=== PATIENT | female | born 1945 | race African-American/Black ===

== ENCOUNTER 2016-08-09 15:00 | Inpatient (IN) ==
--- NOTE | 2016-08-09 15:15 | Emergency Department Note ---
Disposition Clinical Impression: Fever Qualifiers: Fever type: unspecified Qualified Code(s): R50.9 - Fever, unspecified UTI (urinary tract infection) Qualifiers: Urinary tract infection type: site unspecified Hematuria presence: without hematuria Qualified Code(s): N39.0 - Urinary tract infection, site not specified Disposition: Admitted As Inpatient Condition: Good Referrals: Elyssa Schroeder DO [Primary Care Provider] - Forms: ED Satisfaction Letter Time of Disposition: 17:33 General Adult HPI - General Chief complaint: ED Fever Stated complaint: N/D fever Time Seen by Provider: 08/09/16 15:08 Source: patient Mode of arrival: ambulatory Limitations: no limitations Nursing Notes Reviewed: Yes Vital Signs Reviewed: Yes - History of Present Illness HPI Narrative: 71-year-old female past medical history of diabetes and renal disease presents with 2 days of gradually worsening subjective fever and chills punctuated by a fever of 103.0 at home this afternoon. This is associated with malaise and 2 episodes of loose light-colored stool. She has a mild nonproductive cough today. She denies any nausea or vomiting, but admits to poor appetite. She denies any changes in urination or history of urinary tract infection. She denies any confusion, headache, neck stiffness, chest pain or shortness of breath, abdominal pain, rashes or edema. She denies any recent antibiotic use or recent injury or hospitalization. She denies body aches or arthralgias. Pain Scale: 0 - Related Data Home Medications Medication Instructions Recorded Confirmed Allopurinol [Zyloprim] 100 mg PO BID 01/07/16 01/28/16 Atorvastatin [Lipitor] 80 mg PO HS 01/07/16 01/28/16 Carvedilol 12.5 mg PO BID 01/07/16 01/28/16 Clopidogrel [Plavix] 75 mg PO DAILY 01/07/16 01/28/16 Cyanocobalamin (Vitamin B-12) 1,000 mcg PO QMWF 01/07/16 01/28/16 [Vitamin B12] Exenatide Microspheres [Bydureon] 2 mg SQ QWEEK 01/07/16 01/28/16 Ferrous Sulfate [Iron] 325 mg PO BID 01/07/16 01/28/16 Glimepiride [Amaryl] 1 mg PO DAILY 01/07/16 01/28/16 Levothyroxine [Synthroid] 75 mcg PO 0630 01/07/16 01/28/16 Lisinopril [Zestril] 10 mg PO DAILY 01/07/16 01/28/16 Loratadine [Allergy Relief] 10 mg PO DAILY 01/07/16 01/28/16 Pantoprazole Sodium [Protonix] 40 mg PO DAILY 01/07/16 01/28/16 Venlafaxine [Effexor] 37.5 mg PO DAILY 01/07/16 01/28/16 Allergies Allergy/AdvReac Type Severity Reaction Status Date / Time Oxycodone [From Percocet] Allergy Vomiting Verified 08/09/16 15:02 All systems ED: reviewed and negative except as stated. Past Medical History - Past Medical History Attestation: Yes The following information was validated with the patient. Source: patient Medical history: Reports: CHF, diabetes, hyperlipidemia, hypertension, thyroid disease, TIA Surgical history: Reports: breast surgery, cholecystectomy, hysterectomy, orthopedic, other Psychiatric history: Reports: no psych history - Social History Smoking Status: Never smoker Alcohol use: Reports: none Drug use: Reports: none Physical Exam - Head Head exam: atraumatic, normocephalic, normal inspection - Eye Eye exam: Present: normal appearance, PERRL, EOMI - ENT ENT exam: normal exam, normal oropharynx, mucous membranes moist - Neck Neck exam: Present: normal inspection, full ROM, trachea midline - Chest Chest inspection: Present: normal inspection, symmetric chest wall rise - Respiratory Respiratory exam: Clear to auscultation bilaterally without wheezes rales or rhonchi Cardiovascular Cardiovascular exam: Present: regular rate, normal rhythm, normal heart sounds - Abdominal Exam Abdominal exam: Present: soft, Non-Tender. Absent: tenderness, distention, guarding, rebound, rigidity - Extremities Exam Extremities exam: Present: normal inspection, full ROM - Expanded Lower Extremity Exam Hip/Pelvis exam: Present: normal inspection, full ROM - Back Exam Back exam: Present: normal inspection, full ROM. Absent: tenderness, CVA tenderness (R), CVA tenderness (L) - Neurological Exam Neurological exam: Present: alert, oriented X3, CN II-XII intact - Psychiatric Psychiatric exam: Present: normal affect, normal mood - Skin Skin exam: Present: warm, dry, intact, normal color - General Limitations: no limitations General appearance: alert, in no apparent distress Course - Reevaluation(s) Reevaluation #1: CBC showed white blood cells of 15.5. Patient also noted to have acute on chronic renal dysfunction. Urinalysis was concerning for possible urinary tract infection. We will treat this with Rocephin. Patient did not have any pneumonia on chest x-ray. She is febrile despite receiving Tylenol in the ED. We will give ibuprofen. Hospitalist is paged. Time: 17:32 Vital Signs Temperature 99.1 F 08/09/16 15:02 Pulse Rate 98 08/09/16 15:02 Respiratory Rate 18 08/09/16 15:02 Blood Pressure 111/62 08/09/16 15:02 O2 Sat by Pulse Oximetry 91 08/09/16 15:02 Temperature 100.8 F H 08/09/16 17:15 Pulse Rate 90 08/09/16 17:15 Respiratory Rate 16 08/09/16 17:15 Blood Pressure 150/74 08/09/16 17:15 O2 Sat by Pulse Oximetry 93 08/09/16 17:15 Oxygen Delivery Oxygen Delivery Room Air Medical Decision Making - Lab Data Result diagrams: 08/09/16 15:51 08/09/16 15:51 Lab Results 08/09/16 08/09/16 08/09/16 Range/Units 15:34 15:51 15:51 WBC 15.5 H (4.3-11.1) K/mcL RBC 4.17 (3.82-4.97) M/mcL Hgb 11.5 (11.5-15.4) g/dL Hct 33.0 L (35.3-44.9) % MCV 79.1 L (83.0-100.0) fL MCH 27.6 L (28.0-33.3) pg MCHC 34.8 (31.6-35.5) g/dL RDW 14.9 H (11.5-14.5) % Plt Count 261 (140-400) K/mcL MPV 10.2 (9.4-12.4) fL Immature Gran % 0.4 (0-4) % Seg Neutrophils % 70.1 % Lymphocytes % 19.0 % Monocytes % 10.3 % Eosinophils % 0.1 % Basophils % 0.1 % Neutrophils # 10.9 H (1.6-8.9) K/mcL Lymphocytes # 3.0 (0.6-4.6) K/mcL Monocytes # 1.6 H (0.0-1.3) K/mcL Eosinophils # 0.0 (0.0-0.6) K/mcL Basophils # 0.0 (0.0-0.2) K/mcL Sodium 135 L (136-145) mEq/L Potassium 4.1 (3.5-4.5) mEq/L Chloride 100 (98-109) mEq/L Carbon Dioxide 26 (19-29) mEq/L BUN 23 H (7-20) mg/dL Creatinine 1.73 H (0.57-1.11) mg/dL Est GFR ( Amer) 35 L (> 60) Est GFR (Non-Af Amer) 29 L (> 60) BUN/Creatinine Ratio 13 (6-26) Glucose 166 H (70-99) mg/dL POC Glucose 179 H (58-89) Calculated Osmolality 287 (280-300) Lactic Acid (0.5-2.2) mmol/L Calcium 9.0 (8.6-10.8) mg/dL Troponin I (0-0.03) ng/mL Urine Color (Yellow) Urine Clarity (Clear) Urine pH (5.0-8.0) pH Units Ur Specific [place] (1.010-1.025) Urine Protein (Neg-Trace) mg/dL Urine Glucose (UA) (Normal) mg/dL Urine Ketones (Negative) mg/dL Urine Blood (Negative) Urine Nitrite (Negative) Urine Bilirubin (Negative) Urine Urobilinogen (Normal) mg/dL Ur Leukocyte Esterase (Negative) Urine Microscopic RBC (0-3) per hpf Urine Microscopic WBC (0-3) per hpf Ur Squamous Epith Cells (None-Few) per lpf Urine Bacteria (None-Few) per hpf Hyaline Casts (None-Few) per lpf Ur Culture Indicated? (NO) 08/09/16 08/09/16 08/09/16 Range/Units 15:51 15:51 15:52 WBC (4.3-11.1) K/mcL RBC (3.82-4.97) M/mcL Hgb (11.5-15.4) g/dL Hct (35.3-44.9) % MCV (83.0-100.0) fL MCH (28.0-33.3) pg MCHC (31.6-35.5) g/dL RDW (11.5-14.5) % Plt Count (140-400) K/mcL MPV (9.4-12.4) fL Immature Gran % (0-4) % Seg Neutrophils % % Lymphocytes % % Monocytes % % Eosinophils % % Basophils % % Neutrophils # (1.6-8.9) K/mcL Lymphocytes # (0.6-4.6) K/mcL Monocytes # (0.0-1.3) K/mcL Eosinophils # (0.0-0.6) K/mcL Basophils # (0.0-0.2) K/mcL Sodium (136-145) mEq/L Potassium (3.5-4.5) mEq/L Chloride (98-109) mEq/L Carbon Dioxide (19-29) mEq/L BUN (7-20) mg/dL Creatinine (0.57-1.11) mg/dL Est GFR ( Amer) (> 60) Est GFR (Non-Af Amer) (> 60) BUN/Creatinine Ratio (6-26) Glucose (70-99) mg/dL POC Glucose (58-89) Calculated Osmolality (280-300) Lactic Acid 1.2 (0.5-2.2) mmol/L Calcium (8.6-10.8) mg/dL Troponin I 0.02 (0-0.03) ng/mL Urine Color [place] A (Yellow) Urine Clarity Cloudy A (Clear) Urine pH 5.0 (5.0-8.0) pH Units Ur Specific [place] 1.024 (1.010-1.025) Urine Protein Trace (Neg-Trace) mg/dL Urine Glucose (UA) Normal (Normal) mg/dL Urine Ketones Trace H (Negative) mg/dL Urine Blood Negative (Negative) Urine Nitrite Negative (Negative) Urine Bilirubin Small H (Negative) Urine Urobilinogen Normal (Normal) mg/dL Ur Leukocyte Esterase Moderate H (Negative) Urine Microscopic RBC 0-3 (0-3) per hpf Urine Microscopic WBC 5-15 H (0-3) per hpf Ur Squamous Epith Cells Many H (None-Few) per lpf Urine Bacteria Moderate H (None-Few) per hpf Hyaline Casts Few (None-Few) per lpf Ur Culture Indicated? YES A (NO) Attestation Statement - Attestation Attestation: I examined this patient and my medical decision-making was reviewed with the ASBESTOS SHINGLE ROOFER/PA/Advanced Practice Nurse/Resident Physician. I agree with the documented findings, disposition and treatment plan as described except to the extent set forth below.
[2016-08-09] MEDS ORDERED: Acetaminophen 325 MG TABLET PO ONE (15:22)
[2016-08-09] MEDS ORDERED: 0.9 % Sodium Chloride 1,000 ML IVC ONE (15:22)
[2016-08-09 16:08] LABS: Basophils % 0.1 %; Eosinophils % 0.1 %; Hemoglobin 11.5 g/dL (11.5-15.4); Immature Granulocytes % 0.4 % (0-4); Mean Corpuscular HGB Conc 34.8 g/dL (31.6-35.5); Mean Corpuscular Hemoglobin 27.6 pg (28.0-33.3); Mean Corpuscular Volume 79.1 fL (83.0-100.0); Mean Platelet Volume 10.2 fL (9.4-12.4); Monocytes # 1.6 K/mcL (0.0-1.3); Monocytes % 10.3 %; Neutrophils # 10.9 K/mcL (1.6-8.9); Platelet Count 261 K/mcL (140-400); Red Blood Count 4.17 M/mcL (3.82-4.97); Red Cell Distribution Width 14.9 % (11.5-14.5); Segmented Neutrophils % 70.1 %
[2016-08-09 16:37] LABS: Potassium 4.1 mEq/L (3.5-4.5)
[2016-08-09 17:05] LABS: Bilirubin,Urine Small (Negative); Blood,Urine Negative (Negative); Clarity,Urine Cloudy (Clear); Color,Urine Orange (Yellow); Glucose,Urine (UA) Normal (Normal); Ketones,Urine Trace mg/dL (Negative); Leukocyte Esterase,Urine Moderate (Negative); Nitrite,Urine Negative (Negative); Protein,Urine Trace mg/dL (Neg-Trace); Specific Gravity,Urine 1.024 (1.010-1.025); Urobilinogen,Urine Normal (Normal)
[2016-08-09 17:15] LABS: Squamous Epithelial Cell,Urine Many per lpf (None-Few)
[2016-08-09 17:16] LABS: Bacteria,Urine Moderate per hpf (None-Few); Hyaline Casts,Urine Few per lpf (None-Few); RBC,Urine 0-3 per hpf (0-3)
[2016-08-09] MEDS ORDERED: Ibuprofen 600 MG TABLET PO ONE (17:31)
--- NOTE | 2016-08-09 18:22 | Internal Med History&Physical ---
Date of Encounter: 08/09/16 Time of Encounter: 18:20 Assessment and Plan (1) Sepsis Current visit: Yes Status: Acute Sepsis secondary to UTI, with leukocytosis and fever. Will start IV ceftriaxone empirically. Follow urine culture results. lactate at 1.2 Patient hemodynamically stable at this time. Qualifiers: Sepsis type: sepsis due to unspecified organism Qualified Code(s): A41.9 - Sepsis, unspecified organism (2) UTI (urinary tract infection) Current visit: Yes Status: Acute as in sepsis Qualifiers: Urinary tract infection type: site unspecified Hematuria presence: without hematuria Qualified Code(s): N39.0 - Urinary tract infection, site not specified (3) Diabetes Current visit: Yes Status: Acute continue home meds Qualifiers: Diabetes mellitus type: type 2 Diabetes mellitus complication status: without complication Diabetes mellitus shelter insulin use: with shelter use Qualified Code(s): E11.9 - Type 2 diabetes mellitus without complications ; Z79.4 - [facility] (current) use of insulin (4) CKD (chronic kidney disease) Current visit: Yes Status: Acute creatinine at baseline. monitor chem Qualifiers: Chronic kidney disease stage: stage 2 (mild) Qualified Code(s): N18.2 - Chronic kidney disease, stage 2 (mild) Internal Medicine - H&P: HPI Chief complaint: fever and weakness Admitted From: Home Plans for Post Hospital Care: Home History of present illness: Ms. Miller is a 71 year old female with past medical history of diabetes and CKD presents with 2 days of gradually worsening subjective fever and chills fever of 103.0 at home this afternoon. This is associated with malaise and 2 episodes of watery stool. She has a mild nonproductive cough today. She denies any nausea or vomiting, but admits to poor appetite. She denies any changes in urination with no frequency or urgency and no burning micturition. She denies any confusion, headache, neck stiffness, chest pain or shortness of breath, abdominal pain, rashes or edema. She denies any recent antibiotic use or recent injury or hospitalization. She denies body aches or arthralgias. Past Med Surg Social Fam HX - Past Medical History Medical history: CHF, diabetes, hyperlipidemia, hypertension, thyroid disease, TIA Psychiatric history: no psych history - Past Surgical History Surgical History: breast surgery, cholecystectomy, hysterectomy, orthopedic, other - Social History Smoking Status: Never smoker Alcohol use: none Drug use: none Internal Medicine - H&P: Meds Allopurinol [Zyloprim] 100 mg PO BID 01/07/16 [History] Atorvastatin [Lipitor] 80 mg PO HS 01/07/16 [History] Carvedilol 12.5 mg PO BID 01/07/16 [History] Clopidogrel [Plavix] 75 mg PO DAILY 01/07/16 [History] Cyanocobalamin (Vitamin B-12) [Vitamin B12] 1,000 mcg PO MOWEFR 01/07/16 [ History] Exenatide Microspheres [Bydureon] 2 mg SQ QWEEK 01/07/16 [History] Ferrous Sulfate [Iron] 325 mg PO BID 01/07/16 [History] Glimepiride [Amaryl] 1 mg PO QAM 01/07/16 [History] Levothyroxine [Synthroid] 75 mcg PO 0630 01/07/16 [History] Lisinopril [Zestril] 10 mg PO DAILY 01/07/16 [History] Pantoprazole Sodium [Protonix] 40 mg PO BID 01/07/16 [History] Albuterol Sulfate [Proair Hfa] 2 puff IH Q4-6H PRN 08/09/16 [History] Cholecalciferol (D-3) [Vitamin D] 5,000 unit PO DAILY 08/09/16 [History] Clotrimazole/Betameth Dip CRM [Lotrisone CRM] 1 appl TP BID 08/09/16 [History] Fexofenadine HCl [Allergy Relief] 180 mg PO DAILY 08/09/16 [History] Nystatin POWDER [Nystop] 1 appl TP BID PRN 08/09/16 [History] Venlafaxine XR (24 HR) [Effexor Xr] 37.5 mg PO DAILY 08/09/16 [History] Allergies Oxycodone [From Percocet] Allergy (Verified 08/09/16 15:02) Vomiting All Systems PM: A 10-system review of systems was performed and is negative for pertinent findings except as documented above in the HPI. - Constitutional Constitutional: anorexia, chills, fatigue - EENT Eyes: no change in vision, no discharge, no pain, no photophobia Ears: no ear discharge, no ear pain, no tinnitus Nose, mouth and throat: no dysphagia, no nasal discharge, no neck pain, no sore throat - Cardiovascular Cardiovascular ROS IM: no chest pain, no diaphoresis, no dyspnea, no lightheadedness, no palpitations, no syncope - Respiratory Respiratory: no cough, no dyspnea, no wheezing, no excessive phlegm production - Gastrointestinal Gastrointestinal: no abdominal pain, no diarrhea, no hematemesis, no hematochezia, no melena, no nausea, no vomiting - Genitourinary Genitourinary: no change in urinary stream, no dysuria, no flank pain, no hematuria - Constitutional Vitals: Temp Pulse Resp BP Pulse Ox 100.8 F H 90 16 150/74 93 08/09/16 17:15 08/09/16 17:15 08/09/16 17:15 08/09/16 17:15 08/09/16 17:15 General appearance: Present: A&O X 3, no acute distress Exam: Neck supple. Chest bilateral clear. CVS S1 and S2, no murmurs rubs or gallops. Abdomen soft, nontender, bowel sounds are present. Extremities no edema. Neuro no focal deficit, alert awake and oriented. Skin dry, no rashes Internal Med - H&P Results - Labs CBC & Chem 7: 08/09/16 15:51 08/09/16 15:51
[2016-08-09] MEDS ORDERED: Naloxone 0.4 MG/ML INJ IVP PRN (18:37)
[2016-08-10 05:33] LABS: Basophils % 0.1 %; Eosinophils # 0.1 K/mcL (0.0-0.6); Eosinophils % 0.3 %; Hematocrit 33.1 % (35.3-44.9); Hemoglobin 11.3 g/dL (11.5-15.4); Immature Granulocytes % 0.6 % (0-4); Lymphocytes % 13.8 %; Mean Corpuscular HGB Conc 34.1 g/dL (31.6-35.5); Mean Corpuscular Hemoglobin 27.4 pg (28.0-33.3); Mean Corpuscular Volume 80.1 fL (83.0-100.0); Mean Platelet Volume 11.1 fL (9.4-12.4); Monocytes # 1.5 K/mcL (0.0-1.3); Neutrophils # 10.9 K/mcL (1.6-8.9); Platelet Count 254 K/mcL (140-400); Red Blood Count 4.13 M/mcL (3.82-4.97); Red Cell Distribution Width 14.5 % (11.5-14.5); Segmented Neutrophils % 75.2 %
[2016-08-10 05:48] LABS: Calcium 8.8 mg/dL (8.6-10.8); Potassium 4.2 mEq/L (3.5-4.5)
[2016-08-10] MEDS ORDERED: *HR* Dextrose 50 % in Water (Syg) 50 ML SYRINGE IVP PRN (09:35)
[2016-08-10] MEDS ORDERED: D5% in Water 1,000 ML IVC PRN (09:35)
[2016-08-10] MEDS ORDERED: Dextrose Gel 15 GM PO PRN ×2 (09:35)
[2016-08-10] MEDS: Insulin LISPRO 300 UNITS/3 ML VIAL SQ SCH ×3 (09:55→21:15)
[2016-08-10] MEDS: 0.9 % Sodium Chloride 1,000 ML IVC SCH (09:59)
[2016-08-10] MEDS: Venlafaxine XR (24 HR) 37.5 MG CAP.ER.24H PO SCH (10:04)
[2016-08-10 10:12] LABS: Thyroid Stimulating Hormone 0.543 mcIU/mL (0.350-4.840); Triiodothyronine (T3) Free 1.59 pg/mL (1.71-3.71)
[2016-08-10] MEDS: Acetaminophen 325 MG TABLET PO PRN ×2 (11:53→23:28)
--- NOTE | 2016-08-10 13:46 | Internal Med Progress Note ---
Date of Encounter: 08/10/16 Time of Encounter: 13:43 - Assessment and plan (1) Sepsis Current Visit: Yes Status: Resolved Assessment and plan: still has fever and leucocytosis. source possible UTI, CT abd and pelvis with no acute pathology however showed rt. medial lobe opacity concerning for pneumonia. temp spike of 102 today, will send for blood cx. broaden antibiotic coverage to zosyn and levoflox so as to cover pneumonia too, will stop ceftriaxone, will also order CT chest. lactic acid is normal at 1.2 will continue gentle hydration for now. Qualifiers: Sepsis type: sepsis due to unspecified organism Qualified Code(s): A41.9 - Sepsis, unspecified organism (2) UTI (urinary tract infection) Current Visit: Yes Status: Acute Assessment and plan: will change to ceftriaxone 1 gram q12h. patinet still spikinh 100.2 urine cx inconclusive, will repeat will get CT abdomen and pelvis for persistent fever. follow repeat urine cx results have also ordered blood cx x2 Qualifiers: Urinary tract infection type: site unspecified Hematuria presence: without hematuria Qualified Code(s): N39.0 - Urinary tract infection, site not specified (3) Diabetes Current Visit: Yes Status: Acute Assessment and plan: will continue the correction insulin sliding scale. monitor fsg Qualifiers: Diabetes mellitus type: type 2 Diabetes mellitus complication status: without complication Diabetes mellitus termite helper insulin use: with termite helper use Qualified Code(s): E11.9 - Type 2 diabetes mellitus without complications ; Z79.4 - nursing home (current) use of insulin (4) CKD (chronic kidney disease) Current Visit: Yes Status: Acute Assessment and plan: creatinine stable and at baseline will monitor chem. Qualifiers: Chronic kidney disease stage: stage 2 (mild) Qualified Code(s): N18.2 - Chronic kidney disease, stage 2 (mild) (5) Generalized weakness Current Visit: Yes Status: Acute Assessment and plan: as per the , remy c/o feeling cold and weak all the time checked tsh, t3 and t 4, tshand t4 s normal, no need for any intervention. will consult rehab. - Subjective Interval history: patient seen at the bedside, denies any complaints. Reports that she feels generally weak, denies any burning in micturition or increased frequency. had a temp of 100.2 last night. - Constitutional Vitals: Temp Pulse Resp BP Pulse Ox 99.0 F 94 18 149/78 93 08/10/16 09:00 08/10/16 09:00 08/10/16 09:00 08/10/16 09:00 08/10/16 09:00 General appearance: Present: A&O X 3, no acute distress Exam: Neck supple. Chest bilateral clear. CVS S1 and S2, no murmurs rubs or gallops. Abdomen soft, nontender, bowel sounds are present. Extremities no edema. Neuro no focal deficit, alert awake and oriented. Skin dry, no rashes Internal Medicine: Result - Labs CBC & Chem 7: 08/10/16 04:27 08/10/16 04:27 Labs: Short CBC 08/10/16 Range/Units 04:27 WBC 14.5 H (4.3-11.1) K/mcL Hgb 11.3 L (11.5-15.4) g/dL Hct 33.1 L (35.3-44.9) % Plt Count 254 (140-400) K/mcL Neutrophils # 10.9 H (1.6-8.9) K/mcL BMP 08/10/16 04:27 Sodium 139 Potassium 4.2 Chloride 103 Carbon Dioxide 26 BUN 26 H Creatinine 1.58 H Glucose 135 H Calcium 8.8 Consult Discharge Plan - Plan Referrals: Elyssa Schroeder DO [Primary Care Provider] -
[2016-08-10] MEDS ORDERED: Ibuprofen 400 MG TABLET PO PRN (16:26)
[2016-08-10] MEDS ORDERED: Levofloxacin 500 MG/100 ML 500 MG/100 ML BAG IVPB SCH (17:00)
[2016-08-10] MEDS: *HR* Heparin 5,000 UNIT/ML VIAL SQ SCH (17:03)
[2016-08-10] MEDS: Ibuprofen 400 MG TABLET PO PRN (17:04)
[2016-08-11] MEDS: Ibuprofen 400 MG TABLET PO PRN ×3 (00:34→23:00)
[2016-08-11] MEDS: 0.9 % Sodium Chloride 1,000 ML IVC SCH ×3 (00:35→23:00)
[2016-08-11 05:27] LABS: Basophils % 0.2 %; Eosinophils % 0.2 %; Hematocrit 26.8 % (35.3-44.9); Immature Granulocytes % 0.6 % (0-4); Lymphocytes # 2.4 K/mcL (0.6-4.6); Lymphocytes % 18.9 %; Mean Corpuscular HGB Conc 34.7 g/dL (31.6-35.5); Mean Corpuscular Hemoglobin 27.8 pg (28.0-33.3); Mean Platelet Volume 11.2 fL (9.4-12.4); Monocytes # 1.1 K/mcL (0.0-1.3); Neutrophils # 8.9 K/mcL (1.6-8.9); Platelet Count 208 K/mcL (140-400); Red Blood Count 3.35 M/mcL (3.82-4.97); Red Cell Distribution Width 14.6 % (11.5-14.5); Segmented Neutrophils % 71.1 %
[2016-08-11 05:40] LABS: Calcium 8.3 mg/dL (8.6-10.8); Potassium 4.3 mEq/L (3.5-4.5)
[2016-08-11 05:41] LABS: Hemoglobin 9.3 g/dL (11.5-15.4)
[2016-08-11] MEDS: *HR* Heparin 5,000 UNIT/ML VIAL SQ SCH ×2 (06:34→19:32)
[2016-08-11] MEDS: Venlafaxine XR (24 HR) 37.5 MG CAP.ER.24H PO SCH (09:11)
[2016-08-11] MEDS: Insulin LISPRO 300 UNITS/3 ML VIAL SQ SCH ×4 (09:12→20:45)
[2016-08-11] MEDS: Piperacillin/Tazobactam 3.375 GM in D5% in Water (Mini-Bag+) 100 ML IVPB SCH ×2 (09:12→17:46)
[2016-08-11] MEDS: Acetaminophen 325 MG TABLET PO PRN (09:19)
--- NOTE | 2016-08-11 14:08 | Internal Med Progress Note ---
Date of Encounter: 08/11/16 Time of Encounter: 14:05 - Assessment and plan (1) Sepsis Current Visit: Yes Status: Resolved Assessment and plan: Persistent fever, leukocytosis has improved. source UTI and pneumonia. temp spike of 102 today, blood culture has been sent broaden antibiotic coverage to zosyn and levoflox so as to cover pneumonia too, will send sputum for Gram stain and culture . lactic acid is normal at 1.2 will continue gentle hydration for now. Qualifiers: Sepsis type: sepsis due to unspecified organism Qualified Code(s): A41.9 - Sepsis, unspecified organism (2) UTI (urinary tract infection) Current Visit: Yes Status: Acute Assessment and plan: On Zosyn now urine cx inconclusive, repeat urine culture did not show any growth. CT abdomen and pelvis did not show any acute pathology other than right medial lobe pneumonia. Qualifiers: Urinary tract infection type: site unspecified Hematuria presence: without hematuria Qualified Code(s): N39.0 - Urinary tract infection, site not specified (3) Diabetes Current Visit: Yes Status: Acute Assessment and plan: will continue the correction insulin sliding scale. monitor fsg Qualifiers: Diabetes mellitus type: type 2 Diabetes mellitus complication status: without complication Diabetes mellitus [facility] insulin use: with [facility] use Qualified Code(s): E11.9 - Type 2 diabetes mellitus without complications ; Z79.4 - [facility] (current) use of insulin (4) CKD (chronic kidney disease) Current Visit: Yes Status: Acute Assessment and plan: creatinine stable and at baseline will monitor chem. Qualifiers: Chronic kidney disease stage: stage 2 (mild) Qualified Code(s): N18.2 - Chronic kidney disease, stage 2 (mild) (5) Generalized weakness Current Visit: Yes Status: Acute Assessment and plan: as per the , patinet c/o feeling cold and weak all the time checked tsh, t3 and t 4, tshand t4 s normal, no need for any intervention. will consult rehab. - Time Spent With Patient 25 - 35 minutes - Subjective Interval history: patient seen at the bedside, c/o some cough which has some mucus. Reports that she feels generally weak, denies any burning in micturition or increased frequency. had a temp of 101 last night. - Constitutional Vitals: Temp Pulse Resp BP Pulse Ox 98.4 F 88 17 135/59 95 08/11/16 11:55 08/11/16 11:55 08/11/16 11:55 08/11/16 11:55 08/11/16 11:55 General appearance: Present: A&O X 3, no acute distress Exam: Neck supple. Chest bilateral clear. CVS S1 and S2, no murmurs rubs or gallops. Abdomen soft, nontender, bowel sounds are present. Extremities no edema. Neuro no focal deficit, alert awake and oriented. Skin dry, no rashes Internal Medicine: Result - Labs CBC & Chem 7: 08/11/16 04:22 08/11/16 04:22 Labs: Short CBC 08/11/16 Range/Units 04:22 WBC 12.5 H (4.3-11.1) K/mcL Hgb 9.3 L D (11.5-15.4) g/dL Hct 26.8 L (35.3-44.9) % Plt Count 208 (140-400) K/mcL Neutrophils # 8.9 (1.6-8.9) K/mcL BMP 08/11/16 04:22 Sodium 137 Potassium 4.3 Chloride 106 Carbon Dioxide 23 BUN 26 H Creatinine 1.56 H Glucose 135 H Calcium 8.3 L - Impressions Impressions Abdomen/Pelvis CT 08/10/16 13:39 IMPRESSION: Focal airspace opacity in the medial right lower lobe, which is partially visualized. This finding is new from 07/28/2016, and is concerning for pneumonia. No acute process in the abdomen or pelvis. D/ / 08/10/2016 14:44:06 Eb Valdes MD / tasha Interpreting Provider: Eb Valdes MD Chest CT 08/10/16 15:28 IMPRESSION: Stable appearance of consolidation medially in the right lower lobe, which is new from 07/28/2016 and concerning for pneumonia. No other areas of focal consolidation are seen. Trace right pleural effusion. D/ / 08/10/2016 18:35:46 Eb Valdes MD / jennifer Interpreting Provider: Eb Valdes MD Consult Discharge Plan - Plan Referrals: Elyssa Schroeder DO [Primary Care Provider] - Mounika Lees CNP [Advanced Practice Nurse] - 08/17/16 9:45 am
[2016-08-11] MEDS: Levofloxacin 250 MG/50 ML 250 MG/50 ML BAG IVPB SCH (17:44)
[2016-08-12] MEDS: Piperacillin/Tazobactam 3.375 GM in D5% in Water (Mini-Bag+) 100 ML IVPB SCH ×3 (01:11→17:13)
[2016-08-12] MEDS: *HR* Heparin 5,000 UNIT/ML VIAL SQ SCH ×2 (05:13→17:11)
[2016-08-12 06:13] LABS: Basophils % 0.1 %; Eosinophils # 0.1 K/mcL (0.0-0.6); Eosinophils % 0.8 %; Hematocrit 25.5 % (35.3-44.9); Hemoglobin 8.8 g/dL (11.5-15.4); Immature Granulocytes % 0.5 % (0-4); Lymphocytes # 2.1 K/mcL (0.6-4.6); Lymphocytes % 25.4 %; Mean Corpuscular HGB Conc 34.5 g/dL (31.6-35.5); Mean Corpuscular Hemoglobin 27.3 pg (28.0-33.3); Mean Corpuscular Volume 79.2 fL (83.0-100.0); Mean Platelet Volume 11.4 fL (9.4-12.4); Monocytes # 0.8 K/mcL (0.0-1.3); Monocytes % 9.8 %; Neutrophils # 5.2 K/mcL (1.6-8.9); Platelet Count 211 K/mcL (140-400); Red Blood Count 3.22 M/mcL (3.82-4.97); Red Cell Distribution Width 14.8 % (11.5-14.5); Segmented Neutrophils % 63.4 %
[2016-08-12 06:23] LABS: Calcium 8.1 mg/dL (8.6-10.8); Potassium 3.8 mEq/L (3.5-4.5)
[2016-08-12] MEDS: Venlafaxine XR (24 HR) 37.5 MG CAP.ER.24H PO SCH (07:27)
[2016-08-12] MEDS: Insulin LISPRO 300 UNITS/3 ML VIAL SQ SCH ×4 (07:28→20:25)
--- NOTE | 2016-08-12 10:24 | Internal Med Progress Note ---
Date of Encounter: 08/12/16 Time of Encounter: 10:20 - Assessment and plan (1) Sepsis Current Visit: Yes Status: Resolved Assessment and plan: temp spike 100.9, leukocytosis has improved. source UTI and pneumonia. blood culture and urine culture shows no growth. Continue antibiotic coverage to zosyn and levoflox so as to cover pneumonia too , send sputum for Gram stain and culture . Will also send urine for Legionella and strep antigen. Qualifiers: Sepsis type: sepsis due to unspecified organism Qualified Code(s): A41.9 - Sepsis, unspecified organism (2) UTI (urinary tract infection) Current Visit: Yes Status: Acute Assessment and plan: On Zosyn now urine cx inconclusive, repeat urine culture did not show any growth. CT abdomen and pelvis did not show any acute pathology other than right medial lobe pneumonia. Qualifiers: Urinary tract infection type: site unspecified Hematuria presence: without hematuria Qualified Code(s): N39.0 - Urinary tract infection, site not specified (3) Diabetes Current Visit: Yes Status: Acute Assessment and plan: will continue the correction insulin sliding scale. 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 Qualifiers: Chronic kidney disease stage: stage 2 (mild) Qualified Code(s): N18.2 - Chronic kidney disease, stage 2 (mild) (5) Generalized weakness Current Visit: Yes Status: Acute Assessment and plan: as per the , patinet c/o feeling cold and weak all the time checked tsh, t3 and t 4, tshand t4 s normal, no need for any intervention. Bedside PT OT. Incentive spirometry - Subjective Interval history: patient seen at the bedside, c/o some mild diarrhea, no blood in stool Reports that she feels generally weak, denies any burning in micturition or increased frequency. had a temp of 100.9 last night. - Constitutional Vitals: Temp Pulse Resp BP Pulse Ox 98.4 F 65 18 109/61 94 08/12/16 07:13 08/12/16 07:13 08/12/16 07:13 08/12/16 07:13 08/12/16 07:13 General appearance: Present: A&O X 3, no acute distress Exam: Neck supple. Chest bilateral clear. CVS S1 and S2, no murmurs rubs or gallops. Abdomen soft, nontender, bowel sounds are present. Extremities no edema. Neuro no focal deficit, alert awake and oriented. Skin dry, no rashes Internal Medicine: Result - Labs CBC & Chem 7: 08/12/16 05:25 08/12/16 05:25 Labs: Short CBC 08/12/16 Range/Units 05:25 WBC 8.3 (4.3-11.1) K/mcL Hgb 8.8 L (11.5-15.4) g/dL Hct 25.5 L (35.3-44.9) % Plt Count 211 (140-400) K/mcL Neutrophils # 5.2 (1.6-8.9) K/mcL BMP 08/12/16 05:25 Sodium 137 Potassium 3.8 Chloride 108 Carbon Dioxide 20 BUN 21 H Creatinine 1.35 H Glucose 120 H Calcium 8.1 L Consult Discharge Plan - Plan Referrals: Elyssa Schroeder DO [Primary Care Provider] - Mounika Lees, [employer] RECREATION DIRECTOR [Advanced Practice Nurse] - 08/17/16 9:45 am
[2016-08-12] MEDS: Acetaminophen 325 MG TABLET PO PRN (15:54)
[2016-08-12] MEDS: Levofloxacin 250 MG/50 ML 250 MG/50 ML BAG IVPB SCH (15:55)
[2016-08-12] MEDS: Ibuprofen 400 MG TABLET PO PRN (17:10)
[2016-08-12] MEDS ORDERED: Vancomycin 1,750 MG in D5% in Water 250 ML IVPB SCH (18:00)
[2016-08-12] MEDS ORDERED: Vancomycin 1,750 MG in D5% in Water 500 ML IVPB ONE (18:00)
[2016-08-13] MEDS: Piperacillin/Tazobactam 3.375 GM in D5% in Water (Mini-Bag+) 100 ML IVPB SCH ×3 (01:08→15:16)
[2016-08-13] MEDS: Acetaminophen 325 MG TABLET PO PRN ×2 (03:38→15:46)
[2016-08-13] MEDS: *HR* Heparin 5,000 UNIT/ML VIAL SQ SCH ×2 (05:29→18:15)
[2016-08-13 05:36] LABS: Basophils % 0.3 %; Eosinophils # 0.3 K/mcL (0.0-0.6); Eosinophils % 3.2 %; Hematocrit 25.5 % (35.3-44.9); Hemoglobin 8.9 g/dL (11.5-15.4); Immature Granulocytes % 0.6 % (0-4); Lymphocytes # 1.6 K/mcL (0.6-4.6); Lymphocytes % 20.7 %; Mean Corpuscular HGB Conc 34.9 g/dL (31.6-35.5); Mean Corpuscular Hemoglobin 27.6 pg (28.0-33.3); Mean Corpuscular Volume 78.9 fL (83.0-100.0); Mean Platelet Volume 11.2 fL (9.4-12.4); Monocytes # 0.6 K/mcL (0.0-1.3); Neutrophils # 5.3 K/mcL (1.6-8.9); Platelet Count 224 K/mcL (140-400); Red Blood Count 3.23 M/mcL (3.82-4.97); Red Cell Distribution Width 14.9 % (11.5-14.5); Segmented Neutrophils % 68.2 %
[2016-08-13 05:56] LABS: Calcium 8.6 mg/dL (8.6-10.8)
[2016-08-13] MEDS: Venlafaxine XR (24 HR) 37.5 MG CAP.ER.24H PO SCH (07:28)
[2016-08-13] MEDS: Insulin LISPRO 300 UNITS/3 ML VIAL SQ SCH ×4 (07:29→20:33)
--- NOTE | 2016-08-13 11:09 | Internal Med Progress Note ---
Date of Encounter: 08/13/16 Time of Encounter: 11:06 - Assessment and plan (1) Sepsis Current Visit: Yes Status: Resolved Assessment and plan: no fever since last night, leukocytosis has improved. source UTI and pneumonia. blood culture and urine culture shows no growth. Continue Zosyn, have added vancomycin yesterday. Urine for Legionella is negative, will stop levofloxacin today. Follow results for sputum Gram stain and culture. Qualifiers: Sepsis type: sepsis due to unspecified organism Qualified Code(s): A41.9 - Sepsis, unspecified organism (2) UTI (urinary tract infection) Current Visit: Yes Status: Acute Assessment and plan: On Zosyn now urine cx inconclusive, repeat urine culture did not show any growth. CT abdomen and pelvis did not show any acute pathology other than right medial lobe pneumonia. Qualifiers: Urinary tract infection type: site unspecified Hematuria presence: without hematuria Qualified Code(s): N39.0 - Urinary tract infection, site not specified (3) Diabetes Current Visit: Yes Status: Acute Assessment and plan: will continue the correction insulin sliding scale. monitor fsg Qualifiers: Diabetes mellitus type: type 2 Diabetes mellitus complication status: without complication Diabetes mellitus buttermaker insulin use: with jail use Qualified Code(s): E11.9 - Type 2 diabetes mellitus without complications ; Z79.4 - terminal press operator (current) use of insulin (4) CKD (chronic kidney disease) Current Visit: Yes Status: Acute Assessment and plan: creatinine stable and at baseline Patient started on vancomycin since yesterday, renal function looks stable today , pharmacy to dose vancomycin. Monitor trough levels as needed. Qualifiers: Chronic kidney disease stage: stage 2 (mild) Qualified Code(s): N18.2 - Chronic kidney disease, stage 2 (mild) (5) Generalized weakness Current Visit: Yes Status: Acute Assessment and plan: as per the , patinet c/o feeling cold and weak all the time checked tsh, t3 and t 4, tshand t4 s normal, no need for any intervention. Bedside PT OT. Incentive spirometry - Subjective Interval history: patient seen at the bedside,denies any complains today. no fever overnight. added vancomycin yesterday t. - Constitutional Vitals: Temp Pulse Resp BP Pulse Ox 98.3 F 84 14 115/68 95 08/13/16 10:11 08/13/16 10:11 08/13/16 10:11 08/13/16 10:11 08/13/16 10:11 General appearance: Present: A&O X 3, no acute distress Exam: Neck supple. Chest bilateral clear. CVS S1 and S2, no murmurs rubs or gallops. Abdomen soft, nontender, bowel sounds are present. Extremities no edema. Neuro no focal deficit, alert awake and oriented. Skin dry, no rashes Internal Medicine: Result - Labs CBC & Chem 7: 08/13/16 05:02 08/13/16 05:02 Labs: Short CBC 08/13/16 Range/Units 05:02 WBC 7.8 (4.3-11.1) K/mcL Hgb 8.9 L (11.5-15.4) g/dL Hct 25.5 L (35.3-44.9) % Plt Count 224 (140-400) K/mcL Neutrophils # 5.3 (1.6-8.9) K/mcL BMP 08/13/16 05:02 Sodium 136 Potassium 4.0 Chloride 107 Carbon Dioxide 21 BUN 19 Creatinine 1.43 H Glucose 123 H Calcium 8.6 Consult Discharge Plan - Plan Referrals: Elyssa Schroeder DO [Primary Care Provider] - Mounika Lees CNP [Advanced Practice Nurse] - 08/17/16 9:45 am
[2016-08-13] MEDS: Vancomycin 1,500 MG in D5% in Water 250 ML IVPB SCH (18:15)
[2016-08-13] MEDS: Ibuprofen 400 MG TABLET PO PRN (20:36)
[2016-08-14] MEDS: Piperacillin/Tazobactam 3.375 GM in D5% in Water (Mini-Bag+) 100 ML IVPB SCH ×3 (01:22→16:22)
[2016-08-14] MEDS: *HR* Heparin 5,000 UNIT/ML VIAL SQ SCH ×2 (05:56→18:29)
[2016-08-14] MEDS: Insulin LISPRO 300 UNITS/3 ML VIAL SQ SCH ×4 (07:51→20:40)
[2016-08-14 08:03] LABS: Calcium 9.2 mg/dL (8.6-10.8); Potassium 3.9 mEq/L (3.5-4.5)
[2016-08-14] MEDS: Venlafaxine XR (24 HR) 37.5 MG CAP.ER.24H PO SCH (08:07)
[2016-08-14 08:13] LABS: Basophils % 0.5 %; Eosinophils # 0.3 K/mcL (0.0-0.6); Eosinophils % 4.4 %; Hematocrit 26.4 % (35.3-44.9); Hemoglobin 8.9 g/dL (11.5-15.4); Immature Granulocytes % 0.5 % (0-4); Lymphocytes # 1.7 K/mcL (0.6-4.6); Lymphocytes % 25.5 %; Mean Corpuscular HGB Conc 33.7 g/dL (31.6-35.5); Mean Corpuscular Hemoglobin 26.9 pg (28.0-33.3); Mean Corpuscular Volume 79.8 fL (83.0-100.0); Monocytes # 0.8 K/mcL (0.0-1.3); Monocytes % 11.9 %; Neutrophils # 3.8 K/mcL (1.6-8.9); Platelet Count 255 K/mcL (140-400); Red Blood Count 3.31 M/mcL (3.82-4.97); Segmented Neutrophils % 57.2 %
[2016-08-14] MEDS ORDERED: Aminoglycoside Consult 1 EACH MC ONE (10:40)
--- NOTE | 2016-08-14 13:40 | Internal Med Progress Note ---
Date of Encounter: 08/14/16 Time of Encounter: 13:38 - Assessment and plan (1) Sepsis Current Visit: Yes Status: Resolved Assessment and plan: no fever since last night, leukocytosis has improved. source UTI and pneumonia. blood culture and urine culture shows no growth. Continue Zosyn and vancomycin for one more day. Urine for Legionella is negative, urine strep ag is negative If no fever for today, we will de-escalate antibiotics tomorrow. Qualifiers: Sepsis type: sepsis due to unspecified organism Qualified Code(s): A41.9 - Sepsis, unspecified organism (2) UTI (urinary tract infection) Current Visit: Yes Status: Acute Assessment and plan: On Zosyn now urine cx inconclusive, repeat urine culture did not show any growth. CT abdomen and pelvis did not show any acute pathology other than right medial lobe pneumonia. Qualifiers: Urinary tract infection type: site unspecified Hematuria presence: without hematuria Qualified Code(s): N39.0 - Urinary tract infection, site not specified (3) Diabetes Current Visit: Yes Status: Acute Assessment and plan: will continue the correction insulin sliding scale. monitor fsg Qualifiers: Diabetes mellitus type: type 2 Diabetes mellitus complication status: without complication Diabetes mellitus manager intermediate insulin use: with shelter use Qualified Code(s): E11.9 - Type 2 diabetes mellitus without complications ; Z79.4 - correction (current) use of insulin (4) CKD (chronic kidney disease) Current Visit: Yes Status: Acute Assessment and plan: creatinine stable and at baseline Patient started on vancomycin , renal function looks stable today, pharmacy to dose vancomycin. Monitor trough levels as needed. Qualifiers: Chronic kidney disease stage: stage 2 (mild) Qualified Code(s): N18.2 - Chronic kidney disease, stage 2 (mild) (5) Generalized weakness Current Visit: Yes Status: Acute Assessment and plan: as per the , patinet c/o feeling cold and weak all the time checked tsh, t3 and t 4, tshand t4 s normal, no need for any intervention. Bedside PT OT. Incentive spirometry - Subjective Interval history: patient seen at the bedside, reports clinically feeling much better, has diarrhea couple times per day, greenish and watery as notified by thenurse. Denies any nausea, vomiting or abdominal pain. Noted temperature spike of 101 yesterday afternoon at 3 PM. added vancomycin . t. - Constitutional Vitals: Temp Pulse Resp BP Pulse Ox 97.9 F 66 18 131/78 95 08/14/16 10:29 08/14/16 10:29 08/14/16 10:29 08/14/16 10:29 08/14/16 10:29 General appearance: Present: A&O X 3, no acute distress Exam: Neck supple. Chest bilateral clear. CVS S1 and S2, no murmurs rubs or gallops. Abdomen soft, nontender, bowel sounds are present. Extremities no edema. Neuro no focal deficit, alert awake and oriented. Skin dry, no rashes Internal Medicine: Result - Labs CBC & Chem 7: 08/14/16 07:42 08/14/16 07:42 Labs: Short CBC 08/14/16 Range/Units 07:42 WBC 6.6 (4.3-11.1) K/mcL Hgb 8.9 L (11.5-15.4) g/dL Hct 26.4 L (35.3-44.9) % Plt Count 255 (140-400) K/mcL Neutrophils # 3.8 (1.6-8.9) K/mcL BMP 08/14/16 07:42 Sodium 140 Potassium 3.9 Chloride 109 Carbon Dioxide 23 BUN 17 Creatinine 1.39 H Glucose 132 H Calcium 9.2 Consult Discharge Plan - Plan Referrals: Elyssa Schroeder DO [Primary Care Provider] - Mounika Lees CNP [Advanced Practice Nurse] - 08/17/16 9:45 am
[2016-08-14] MEDS: Vancomycin 1,500 MG in D5% in Water 250 ML IVPB SCH (20:43)
[2016-08-15] MEDS: Piperacillin/Tazobactam 3.375 GM in D5% in Water (Mini-Bag+) 100 ML IVPB SCH ×2 (01:28→08:07)
[2016-08-15] MEDS: *HR* Heparin 5,000 UNIT/ML VIAL SQ SCH (05:26)
[2016-08-15 07:47] VITALS: BP 162/82
[2016-08-15] MEDS: Insulin LISPRO 300 UNITS/3 ML VIAL SQ SCH (08:00)
[2016-08-15] MEDS: Venlafaxine XR (24 HR) 37.5 MG CAP.ER.24H PO SCH (08:03)
--- NOTE | 2016-08-15 08:50 | Discharge Summary ---
Date of Encounter: 08/15/16 Time of Encounter: 08:47 - Discharge Diagnosis (1) Sepsis Priority: Primary Status: Resolved Qualifiers: Sepsis type: sepsis due to unspecified organism Qualified Code(s): A41.9 - Sepsis, unspecified organism (2) UTI (urinary tract infection) Priority: Primary Status: Acute Qualifiers: Urinary tract infection type: site unspecified Hematuria presence: without hematuria Qualified Code(s): N39.0 - Urinary tract infection, site not specified (3) Diabetes Priority: Secondary Status: Acute Qualifiers: Diabetes mellitus type: type 2 Diabetes mellitus complication status: without complication Diabetes mellitus termination clerk insulin use: with termination clerk use Qualified Code(s): E11.9 - Type 2 diabetes mellitus without complications ; Z79.4 - halfway (current) use of insulin (4) CKD (chronic kidney disease) Priority: Secondary Status: Acute Qualifiers: Chronic kidney disease stage: stage 2 (mild) Qualified Code(s): N18.2 - Chronic kidney disease, stage 2 (mild) (5) Generalized weakness Priority: Primary Status: Acute - Discharge Medications Prescriptions: Amoxicillin/Clavulanate [Augmentin] 875 mg PO BIDWM #10 tablet Home Medications: Allopurinol [Zyloprim] 100 mg PO BID 01/07/16 [History] Atorvastatin [Lipitor] 80 mg PO HS 01/07/16 [History] Carvedilol 12.5 mg PO BID 01/07/16 [History] Clopidogrel [Plavix] 75 mg PO DAILY 01/07/16 [History] Cyanocobalamin (Vitamin B-12) [Vitamin B12] 1,000 mcg PO MOWEFR 01/07/16 [ History] Exenatide Microspheres [Bydureon] 2 mg SQ QWEEK 01/07/16 [History] Ferrous Sulfate [Iron] 325 mg PO BID 01/07/16 [History] Glimepiride [Amaryl] 1 mg PO QAM 01/07/16 [History] Levothyroxine [Synthroid] 75 mcg PO 0630 01/07/16 [History] Lisinopril [Zestril] 10 mg PO DAILY 01/07/16 [History] Pantoprazole Sodium [Protonix] 40 mg PO BID 01/07/16 [History] Albuterol Sulfate [Proair Hfa] 2 puff IH Q4-6H PRN 08/09/16 [History] Cholecalciferol (D-3) [Vitamin D] 5,000 unit PO DAILY 08/09/16 [History] Clotrimazole/Betameth Dip CRM [Lotrisone CRM] 1 appl TP BID 08/09/16 [History] Fexofenadine HCl [Allergy Relief] 180 mg PO DAILY 08/09/16 [History] Nystatin POWDER [Nystop] 1 appl TP BID PRN 08/09/16 [History] Venlafaxine XR (24 HR) [Effexor Xr] 37.5 mg PO DAILY 08/09/16 [History] Amoxicillin/Clavulanate [Augmentin] 875 mg PO BIDWM #10 tablet 08/15/16 [Rx] Allergies/Adverse Reactions: Allergies Oxycodone [From Percocet] Allergy (Verified 08/09/16 15:02) Vomiting Date of admission: 08/11/16 22:25 Primary care physician: Elyssa Schroeder DO Discharging clinician: Malvin Gaona Anticipated date of discharge: 08/15/16 - Patient Status Disposition: Home, Self-Care Condition: Fair Functional capacity at discharge: independent ambulation Overall status at discharge: patient is back to baseline - Discharge Instructions Instructions: Urinary Tract Infection in Women (DC), Sepsis (DC) Follow Up With: Elyssa Schroeder DO [Primary Care Provider] - Mounika Lees CNP [Advanced Practice Nurse] - 08/17/16 9:45 am - Diet and Activity Activity: resume usual activities as tolerated Diet: advance to your usual diet Interval History: Ms. Miller is a 71 year old female with past medical history of diabetes and CKD presents with 2 days of gradually worsening subjective fever and chills fever of 103.0 at home. Workup at ED showed evidence of UTI, she was started on IV ceftriaxone and was admitted to the hospital. She kept on spiking on IV ceftriaxone, hence CT abdomen and pelvis was obtained which showed evidence of right medial pneumonia. Antibiotics was broadened to Zosyn and levofloxacin and ceftriaxone was stopped. Blood culture was received, patient hardly had any symptoms of cough clinically , but the fever persisted. Leukocytosis gradually resolved but given the persistence of fever, CT chest was obtained which confirmed right medial zone pneumonia. blood cx was negative Vancomycin was added to Zosyn, urine for strep antigen and legionella was negative and hence levofloxacin was stopped. Patient received treatment for UTI and pneumonia with vancomycin and Zosyn, eventually her fever subsided. At the time of discharge, patient feels clinically better, we will discharge her on oral Augmentin and will follow-up with her PCP within a week. Hospital course: Ms. Miller is a 71 year old female Time spent discussing smoking cessation with patient: more than 10 minutes - Time Spent with Patient Total time spent providing and/or coordinating discharge services: Greater than 30 minutes - Constitutional Vitals: Temp Pulse Resp BP Pulse Ox 98.2 F 82 16 162/82 93 08/15/16 07:46 08/15/16 07:46 08/15/16 07:46 08/15/16 07:46 08/15/16 07:46 General appearance: Present: A&O X 3, no acute distress Exam: Neck supple. Chest bilateral clear. CVS S1 and S2, no murmurs rubs or gallops. Abdomen soft, nontender, bowel sounds are present. Extremities no edema. Neuro no focal deficit, alert awake and oriented. Skin dry, no rashes
== END 2016-08-15 10:41 | disposition home or self-care (01) | DRG 871 ==
LOC: EMEROO 15:00 → 3ANU 15:00
PROVIDERS: ADMIT Internal Medicine; ATTEND Internal Medicine

== ENCOUNTER 2020-01-08 17:21 | Inpatient (IN) ==
[2020-01-08] MEDS ORDERED: Acetaminophen 325 MG TABLET PO ONE (17:37)
[2020-01-08] MEDS ORDERED: 0.9 % Sodium Chloride 1,000 ML IVC ONE (17:37)
[2020-01-08 18:09] LABS: Basophils % 0.2 %; Eosinophils # 0.1 K/mcL (0.0-0.6); Eosinophils % 0.6 %; Hematocrit 33.6 % (35.3-44.9); Immature Granulocytes % 0.6 % (0-4); Lymphocytes % 9.7 %; Mean Corpuscular HGB Conc 32.7 g/dL (31.6-35.5); Mean Corpuscular Hemoglobin 28.1 pg (28.0-33.3); Mean Corpuscular Volume 85.9 fL (83.0-100.0); Mean Platelet Volume 10.6 fL (9.4-12.4); Monocytes # 0.5 K/mcL (0.0-1.3); Monocytes % 4.3 %; Platelet Count 219 K/mcL (140-400); Red Blood Count 3.91 M/mcL (3.82-4.97); Red Cell Distribution Width 14.5 % (11.5-14.5); Segmented Neutrophils % 84.6 %; White Blood Count 10.6 K/mcL (4.3-11.1)
[2020-01-08 18:28] LABS: Calcium 8.9 mg/dL (8.6-10.3); Potassium 3.9 mEq/L (3.5-5.1)
[2020-01-08 18:42] LABS: Bacteria,Urine Few per hpf (None-Few); Bilirubin,Urine Small (Negative); Blood,Urine Small (Negative); Clarity,Urine Turbid (Clear); Color,Urine Yellow (Yellow); Glucose,Urine (UA) Normal (Normal); Ketones,Urine Negative (Negative); Leukocyte Esterase,Urine Small (Negative); Mucus,Urine Few per lpf (None-Few); Nitrite,Urine Negative (Negative); Protein,Urine 50 mg/dL (Neg-Trace); Specific Gravity,Urine 1.019 (1.010-1.025); Squamous Epithelial Cell,Urine Moderate per hpf (None-Few); Urobilinogen,Urine Normal (Normal)
[2020-01-08] MEDS ORDERED: Azithromycin 500 MG in 0.9 % Sodium Chloride 250 ML IVPB ONE (18:54)
[2020-01-08] MEDS ORDERED: cefTRIAXone 1,000 MG in Water for inj. (sterile) 10 ML IVP ONE (18:54)
[2020-01-08 19:15] LABS: Adenovirus Not Detected (Not Detect); Bordetella Pertussis Not Detected (Not Detect); Chlamydophila pneumoniae Not Detected (Not Detect); Coronavirus 229E Not Detected (Not Detect); Coronavirus HKU1 Not Detected (Not Detect); Coronavirus NL63 Not Detected (Not Detect); Coronavirus OC43 Not Detected (Not Detect); Human Metapneumovirus Not Detected (Not Detect); Human Rhinovirus/Enterovirus Not Detected (Not Detect); Influenza A Subtype 2009 H1 Not Detected (Not Detect); Influenza B Not Detected (Not Detect); Mycoplasma pneumoniae Not Detected (Not Detect); Parainfluenza Virus 1 Not Detected (Not Detect); Parainfluenza Virus 2 Not Detected (Not Detect); Parainfluenza Virus 3 Not Detected (Not Detect); Parainfluenza Virus 4 Not Detected (Not Detect); Respiratory Syncytial Virus Not Detected (Not Detect); SARS-CoV-2 Not Detected (Not Detect)
[2020-01-08] MEDS ORDERED: Dexamethasone 4 MG/ML VIAL IVP STA (20:04)
[2020-01-08] MEDS ORDERED: Naloxone 0.4 MG/ML INJ IVP PRN (23:35)
[2020-01-09] MEDS ORDERED: D5% in Water 1,000 ML IVC PRN (02:23)
[2020-01-09] MEDS ORDERED: *HR* Dextrose 50 % in Water (Vial) 50 ML VIAL IVP PRN (02:23)
[2020-01-09] MEDS ORDERED: Dextrose Gel 15 GM/37.5 ML TUBE PO PRN ×2 (02:23)
[2020-01-09 04:04] LABS: Hematocrit 33.7 % (35.3-44.9); Hemoglobin 11.4 g/dL (11.5-15.4); Mean Corpuscular HGB Conc 33.8 g/dL (31.6-35.5); Mean Corpuscular Hemoglobin 29.2 pg (28.0-33.3); Mean Corpuscular Volume 86.2 fL (83.0-100.0); Mean Platelet Volume 10.9 fL (9.4-12.4); Platelet Count 214 K/mcL (140-400); Red Blood Count 3.91 M/mcL (3.82-4.97); Red Cell Distribution Width 14.6 % (11.5-14.5); White Blood Count 9.7 K/mcL (4.3-11.1)
[2020-01-09 04:25] LABS: Calcium 8.6 mg/dL (8.6-10.3); Magnesium 1.5 mg/dL (1.6-2.6); Phosphorous 3.2 mg/dL (2.7-4.5); Potassium 3.9 mEq/L (3.5-5.1)
[2020-01-09] MEDS: *HR* Heparin 5,000 UNIT/ML VIAL SQ SCH ×2 (05:33→16:41)
[2020-01-09] MEDS: Insulin LISPRO 300 UNITS/3 ML VIAL SQ SCH ×3 (08:13→16:42)
[2020-01-09] MEDS: carvediloL 6.25 MG TABLET PO SCH (18:38)
[2020-01-09] MEDS ORDERED: cefTRIAXone 1,000 MG in Water for inj. (sterile) 10 ML IVP SCH (19:00)
[2020-01-09] MEDS ORDERED: Azithromycin 250 MG TABLET PO SCH (19:00)
[2020-01-09] MEDS ORDERED: Insulin LISPRO 300 UNITS/3 ML VIAL SQ SCH (21:00)
[2020-01-09] MEDS: Famotidine 20 MG TABLET PO SCH (21:08)
[2020-01-09] MEDS: allopurinoL 100 MG TABLET PO SCH (21:08)
[2020-01-10] MEDS: ursodioL 300 MG CAPSULE PO SCH ×2 (00:26→08:24)
[2020-01-10] MEDS: *HR* Heparin 5,000 UNIT/ML VIAL SQ SCH (05:36)
[2020-01-10 06:52] VITALS: BP 149/72
[2020-01-10] MEDS: carvediloL 6.25 MG TABLET PO SCH (08:24)
[2020-01-10] MEDS: Famotidine 20 MG TABLET PO SCH (08:25)
[2020-01-10] MEDS: allopurinoL 100 MG TABLET PO SCH (08:25)
[2020-01-10] MEDS: Insulin LISPRO 300 UNITS/3 ML VIAL SQ SCH (08:26)
[2020-01-10] MEDS ORDERED: Cholecalciferol (D-3) 1,000 UNIT (25MCG) TABLET PO SCH (09:00)
[2020-01-10] MEDS ORDERED: Loratadine 10 MG TABLET PO SCH (09:00)
[2020-01-10 09:30] LABS: Basophils % 0.1 %; Eosinophils % 0.1 %; Hematocrit 31.7 % (35.3-44.9); Hemoglobin 10.7 g/dL (11.5-15.4); Immature Granulocytes % 0.6 % (0-4); Lymphocytes # 2.4 K/mcL (0.6-4.6); Lymphocytes % 18.8 %; Mean Corpuscular HGB Conc 33.8 g/dL (31.6-35.5); Mean Corpuscular Hemoglobin 28.6 pg (28.0-33.3); Mean Corpuscular Volume 84.8 fL (83.0-100.0); Mean Platelet Volume 11.1 fL (9.4-12.4); Monocytes # 0.6 K/mcL (0.0-1.3); Neutrophils # 9.6 K/mcL (1.6-8.9); Platelet Count 251 K/mcL (140-400); Red Blood Count 3.74 M/mcL (3.82-4.97); Red Cell Distribution Width 14.4 % (11.5-14.5); Segmented Neutrophils % 75.4 %; White Blood Count 12.7 K/mcL (4.3-11.1)
[2020-01-10] MEDS ORDERED: cefTRIAXone 1,000 MG in Water for inj. (sterile) 10 ML IVP ONE (09:45)
[2020-01-10] MEDS ORDERED: Azithromycin 250 MG TABLET PO ONE (09:45)
[2020-01-10 09:47] LABS: Potassium 3.8 mEq/L (3.5-5.1)
[2020-01-12] MEDS ORDERED: Cyanocobalamin (B-12) 1,000 MCG TABLET PO SCH (09:00)
== END 2020-01-10 11:07 | disposition home or self-care (01) | DRG 871 ==
LOC: EMEROOARM 17:21 → 2NENU 17:21 → SUATTDRO 22:39 → 2NENU 23:52 → 3ANU 01-09 02:45
PROVIDERS: ADMIT Internal Medicine; ATTEND Internal Medicine

== ENCOUNTER 2020-11-27 14:15 | Observation (INO) ==
[2020-11-27 15:03] LABS: Basophils % 0.3 %; Eosinophils # 0.2 K/mcL (0.0-0.6); Eosinophils % 1.7 %; Hemoglobin 11.2 g/dL (11.5-15.4); Immature Granulocytes % 0.3 % (0-4); Lymphocytes # 2.9 K/mcL (0.6-4.6); Lymphocytes % 24.3 %; Mean Corpuscular HGB Conc 33.9 g/dL (31.6-35.5); Mean Corpuscular Hemoglobin 28.2 pg (28.0-33.3); Mean Corpuscular Volume 83.1 fL (83.0-100.0); Mean Platelet Volume 10.4 fL (9.4-12.4); Monocytes # 0.8 K/mcL (0.0-1.3); Monocytes % 6.5 %; Neutrophils # 7.9 K/mcL (1.6-8.9); Platelet Count 265 K/mcL (140-400); Red Blood Count 3.97 M/mcL (3.82-4.97); Red Cell Distribution Width 13.8 % (11.5-14.5); Segmented Neutrophils % 66.9 %; White Blood Count 11.8 K/mcL (4.3-11.1)
[2020-11-27 15:11] LABS: BUN/Creatinine Ratio 14 (6-26); Blood Urea Nitrogen 23 mg/dL (8-23); Calcium 9.5 mg/dL (8.6-10.3); Carbon Dioxide 25 mEq/L (23-29); Chloride 103 mEq/L (98-107); Glucose 233 mg/dL (70-105); Osmolality,Calculated 295 (280-300); Potassium 3.9 mEq/L (3.5-5.1); Sodium 137 mEq/L (136-145); Troponin I < 0.03 ng/mL (< 0.04); eGFR For African Americans 37 (> 60); eGFR For Non-African Americans 30 (> 60)
[2020-11-27 15:46] LABS: Bacteria,Urine Few per hpf (None-Few); Bilirubin,Urine Negative (Negative); Blood,Urine Negative (Negative); Clarity,Urine Turbid (Clear); Color,Urine Yellow (Yellow); Glucose,Urine (UA) >=1000 mg/dL (Normal); Hyaline Casts,Urine Moderate per lpf (None Seen); Ketones,Urine Trace mg/dL (Negative); Leukocyte Esterase,Urine Large (Negative); Mucus,Urine Few per lpf (None-Few); Nitrite,Urine Negative (Negative); PH,Urine 5.5 pH Units (5.0-8.0); Protein,Urine Trace mg/dL (Neg-Trace); Specific Gravity,Urine 1.022 (1.010-1.025); Squamous Epithelial Cell,Urine Many per hpf (None-Few); Urobilinogen,Urine Normal (Normal); WBC,Urine 50-100 per hpf (0-3)
[2020-11-27] MEDS ORDERED: Aspirin Enteric Coated 81 MG Tablet PO ONE (16:06)
[2020-11-27] MEDS ORDERED: Melatonin 3 MG TABLET PO PRN (17:12)
[2020-11-27] MEDS ORDERED: Ondansetron 4 MG/2 ML VIAL IVP PRN (17:12)
[2020-11-27] MEDS ORDERED: *HR* HYDROcodone/Acet 5/325 mg TABLET PO PRN (17:12)
[2020-11-27] MEDS ORDERED: Naloxone 0.4 MG/ML INJ IVP PRN (17:12)
[2020-11-27] MEDS ORDERED: Acetaminophen 325 MG TABLET PO PRN (17:12)
[2020-11-27 17:45] LABS: Influenza A PCR Negative (Negative); Influenza B PCR Negative (Negative); Resp. Syncytial Virus PCR Negative (Negative)
[2020-11-27 17:46] LABS: SARS-CoV-2 by PCR (In House) Negative (Negative)
[2020-11-27] MEDS ORDERED: D5% in Water 1,000 ML IVC PRN (20:49)
[2020-11-27] MEDS ORDERED: Dextrose Gel 15 GM/37.5 ML TUBE PO PRN ×2 (20:49)
[2020-11-27] MEDS ORDERED: *HR* Dextrose 50 % in Water (Syg) 50 ML SYRINGE IVP PRN (20:49)
[2020-11-27] MEDS ORDERED: Perflutren Lipid Microsphere 1.3 ML in 0.9 % Sodium Chloride 8.7 ML IVP PRN (21:01)
[2020-11-27] MEDS: carvediloL 6.25 MG TABLET PO SCH (21:14)
[2020-11-28 03:04] LABS: Hematocrit 31.6 % (35.3-44.9); Hemoglobin 10.6 g/dL (11.5-15.4); Mean Corpuscular HGB Conc 33.5 g/dL (31.6-35.5); Mean Corpuscular Volume 83.6 fL (83.0-100.0); Mean Platelet Volume 10.1 fL (9.4-12.4); Platelet Count 246 K/mcL (140-400); Red Blood Count 3.78 M/mcL (3.82-4.97); Red Cell Distribution Width 13.9 % (11.5-14.5); White Blood Count 10.4 K/mcL (4.3-11.1)
[2020-11-28 03:21] LABS: Calcium 9.4 mg/dL (8.6-10.3); Magnesium 1.5 mg/dL (1.6-2.6); Phosphorous 3.4 mg/dL (2.7-4.5); Potassium 3.9 mEq/L (3.5-5.1)
[2020-11-28 04:34] LABS: Estimated Average Glucose 120 mg/dl; Hemoglobin A1C 5.8 %
[2020-11-28] MEDS ORDERED: *HR* Heparin 5,000 UNIT/ML VIAL SQ SCH (06:00)
[2020-11-28] MEDS ORDERED: Regadenoson 0.4 MG/5 ML SYRINGE IVP ONE (07:27)
[2020-11-28] MEDS: Insulin LISPRO 300 UNITS/3 ML VIAL SUBQ SCH ×2 (10:17→11:39)
[2020-11-28] MEDS: carvediloL 6.25 MG TABLET PO SCH (11:06)
[2020-11-28 11:29] VITALS: BP 142/72; PULSE 83; TEMP 98.1; O2SAT 96
== END 2020-11-28 16:43 | disposition home or self-care (01) ==
LOC: 3BNU 14:15 → EMEROOARM 14:15 → SUATTDRO 16:25 → 3BNU 18:15
PROVIDERS: ADMIT Internal Medicine; ATTEND Internal Medicine

== ENCOUNTER 2021-01-23 09:11 | Inpatient (IN) ==
[2021-01-23] MEDS ORDERED: 0.9 % Sodium Chloride 1,000 ML IV ONE (09:35)
[2021-01-23 09:55] LABS: Basophils % 0.2 %; Eosinophils # 0.2 K/mcL (0.0-0.6); Eosinophils % 1.9 %; Hematocrit 30.3 % (35.3-44.9); Hemoglobin 10.4 g/dL (11.5-15.4); Immature Granulocytes % 0.5 % (0-4); Mean Corpuscular HGB Conc 34.3 g/dL (31.6-35.5); Mean Corpuscular Hemoglobin 27.7 pg (28.0-33.3); Mean Corpuscular Volume 80.6 fL (83.0-100.0); Monocytes # 0.2 K/mcL (0.0-1.3); Monocytes % 2.6 %; Neutrophils # 6.5 K/mcL (1.6-8.9); Platelet Count 224 K/mcL (140-400); Red Blood Count 3.76 M/mcL (3.82-4.97); Red Cell Distribution Width 14.2 % (11.5-14.5); Segmented Neutrophils % 72.8 %; White Blood Count 8.9 K/mcL (4.3-11.1)
[2021-01-23 10:02] LABS: INR 1.1
[2021-01-23 10:15] LABS: Albumin/Globulin Ratio 1.2 (1.1-2.2); Bilirubin,Direct 0.3 mg/dL (0.0-0.2); Bilirubin,Total 1.3 mg/dL (0.3-1.0); Calcium 7.1 mg/dL (8.6-10.3); Globulin 2.6 g/dL (2.4-3.5); Potassium 3.4 mEq/L (3.5-5.1); Total Protein 5.6 g/dL (6.4-8.9)
[2021-01-23] MEDS ORDERED: Pantoprazole 40 MG VIAL IVP ONE (13:03)
[2021-01-23] MEDS ORDERED: *HR* Dextrose 50 % in Water (Syg) 50 ML SYRINGE IVP PRN (13:04)
[2021-01-23] MEDS ORDERED: D5% in Water 1,000 ML IVC PRN (13:04)
[2021-01-23] MEDS ORDERED: Dextrose Gel 15 GM/37.5 ML TUBE PO PRN ×2 (13:04)
[2021-01-23] MEDS ORDERED: Naloxone 0.4 MG/ML INJ IVP PRN (13:05)
[2021-01-23] MEDS: Cyanocobalamin (B-12) 1,000 MCG TABLET PO SCH (14:22)
[2021-01-23] MEDS: 0.9 % Sodium Chloride 1,000 ML IVC SCH (14:22)
[2021-01-23 18:08] LABS: Hematocrit 28.4 % (35.3-44.9); Hemoglobin 9.7 g/dL (11.5-15.4)
[2021-01-23] MEDS: Insulin LISPRO 300 UNITS/3 ML VIAL SUBQ SCH ×2 (18:19→22:10)
[2021-01-23] MEDS: carvediloL 6.25 MG TABLET PO SCH (18:24)
[2021-01-23] MEDS: Pantoprazole 40 MG VIAL IVP SCH (21:27)
[2021-01-23] MEDS: allopurinoL 100 MG TABLET PO SCH (22:07)
[2021-01-24 02:27] LABS: Basophils % 0.2 %; Eosinophils # 0.1 K/mcL (0.0-0.6); Eosinophils % 1.9 %; Hematocrit 27.8 % (35.3-44.9); Hemoglobin 9.1 g/dL (11.5-15.4); Immature Granulocytes % 0.2 % (0-4); Lymphocytes # 1.3 K/mcL (0.6-4.6); Lymphocytes % 25.9 %; Mean Corpuscular HGB Conc 32.7 g/dL (31.6-35.5); Mean Corpuscular Hemoglobin 26.8 pg (28.0-33.3); Mean Platelet Volume 11.8 fL (9.4-12.4); Monocytes # 0.1 K/mcL (0.0-1.3); Monocytes % 2.7 %; Neutrophils # 3.3 K/mcL (1.6-8.9); Platelet Count 185 K/mcL (140-400); Red Blood Count 3.39 M/mcL (3.82-4.97); Red Cell Distribution Width 14.2 % (11.5-14.5); Segmented Neutrophils % 69.1 %; White Blood Count 4.8 K/mcL (4.3-11.1)
[2021-01-24 02:45] LABS: Calcium 8.4 mg/dL (8.6-10.3); Magnesium 1.5 mg/dL (1.6-2.6); Potassium 4.1 mEq/L (3.5-5.1)
[2021-01-24 03:52] LABS: Campylobacter by PCR Not detected (Not detect)
[2021-01-24 03:53] LABS: Adenovirus F 40/41 PCR Not detected (Not detect); Astrovirus PCR Not detected (Not detect); C.difficile Toxin A/B Gene PCR DETECTED (Not detect); Cryptosporidium by PCR Not detected (Not detect); Cyclospora cayetanensis PCR Not detected (Not detect); E. coli O157 by PCR Not detected (Not detect); Entamoeba histolytica PCR Not detected (Not detect); Enteroaggregative E.coli(EAEC) Not detected (Not detect); Enteropathogenic E.coli(EPEC) Not detected (Not detect); Enterotoxigenic E.coli (ETEC) DETECTED (Not detect); Giardia lamblia PCR Not detected (Not detect); Norovirus GI/GII PCR Not detected (Not detect); Plesiomonas shigelloides PCR Not detected (Not detect); Rotavirus A PCR Not detected (Not detect); Salmonella PCR Not detected (Not detect); Sapovirus PCR Not detected (Not detect); Shig/EnteroinvasiveE coli EIEC Not detected (Not detect); Shigalike tox-prod E coli STEC Not detected (Not detect); Vibrio PCR Not detected (Not detect); Vibrio cholerae PCR Not detected (Not detect); Yersinia enterocolitica PCR Not detected (Not detect)
[2021-01-24] MEDS: 0.9 % Sodium Chloride 1,000 ML IVC SCH (06:53)
[2021-01-24] MEDS: Vancomycin Oral Soln 125 MG/2.5 ML UDC PO SCH ×5 (07:55→21:34)
[2021-01-24] MEDS: Loratadine 10 MG TABLET PO SCH (08:25)
[2021-01-24] MEDS: Magnesium Oxide 400 MG TABLET PO SCH (08:25)
[2021-01-24] MEDS: allopurinoL 100 MG TABLET PO SCH ×2 (08:25→21:35)
[2021-01-24] MEDS: carvediloL 6.25 MG TABLET PO SCH ×2 (08:26→16:54)
[2021-01-24] MEDS: Insulin LISPRO 300 UNITS/3 ML VIAL SUBQ SCH ×3 (08:26→17:55)
[2021-01-24] MEDS: Pantoprazole 40 MG VIAL IVP SCH ×2 (09:00→21:52)
[2021-01-24] MEDS ORDERED: *HR* Propofol 200 MG/20 ML VIAL IVP ONE (12:44)
[2021-01-24] MEDS ORDERED: Lidocaine -MPF 2% 5 ML VIAL ONE (12:46)
[2021-01-24] MEDS: Cyanocobalamin (B-12) 1,000 MCG TABLET PO SCH (14:28)
[2021-01-24] MEDS: Cholecalciferol (D-3) 1,000 UNIT (25MCG) TABLET PO SCH (14:28)
[2021-01-24] MEDS: Nystatin SUSP 5 ML UD.LIQ PO SCH ×3 (14:28→21:34)
[2021-01-25] MEDS: Loratadine 10 MG TABLET PO SCH (09:08)
[2021-01-25] MEDS: allopurinoL 100 MG TABLET PO SCH ×2 (09:08→21:44)
[2021-01-25] MEDS: carvediloL 6.25 MG TABLET PO SCH ×2 (09:08→16:56)
[2021-01-25] MEDS: Magnesium Oxide 400 MG TABLET PO SCH (09:08)
[2021-01-25] MEDS: Vancomycin Oral Soln 125 MG/2.5 ML UDC PO SCH ×4 (09:08→21:43)
[2021-01-25] MEDS: Nystatin SUSP 5 ML UD.LIQ PO SCH ×4 (09:08→21:44)
[2021-01-25] MEDS: Pantoprazole 40 MG VIAL IVP SCH ×2 (09:09→21:44)
[2021-01-25] MEDS: Insulin LISPRO 300 UNITS/3 ML VIAL SUBQ SCH ×5 (09:09→21:57)
[2021-01-25] MEDS: Sucralfate 1 GM TABLET PO SCH ×4 (09:14→21:45)
[2021-01-25 10:39] LABS: Hemoglobin 8.8 g/dL (11.5-15.4); Immature Granulocytes % 1.3 % (0-4)
[2021-01-25 10:41] LABS: Basophils % 0.7 %; Eosinophils % 2.6 %; Lymphocytes # 1.2 K/mcL (0.6-4.6); Mean Corpuscular HGB Conc 33.8 g/dL (31.6-35.5); Mean Corpuscular Hemoglobin 27.8 pg (28.0-33.3); Mean Platelet Volume 12.3 fL (9.4-12.4); Monocytes # 0.1 K/mcL (0.0-1.3); Monocytes % 3.9 %; Neutrophils # 0.2 K/mcL (1.6-8.9); Platelet Count 156 K/mcL (140-400); Red Blood Count 3.17 M/mcL (3.82-4.97); Red Cell Distribution Width 14.2 % (11.5-14.5); Segmented Neutrophils % 14.5 %; White Blood Count 1.5 K/mcL (4.3-11.1)
[2021-01-25 11:08] LABS: Calcium 8.7 mg/dL (8.6-10.3); Potassium 3.9 mEq/L (3.5-5.1)
[2021-01-25 11:37] LABS: Anisocytosis 1+ (Not Present); Platelet Estimate Normal (Normal); Reactive Lymphocytes Present (Not Present)
[2021-01-26] MEDS: Sucralfate 1 GM TABLET PO SCH (08:35)
[2021-01-26] MEDS: Loratadine 10 MG TABLET PO SCH (08:35)
[2021-01-26] MEDS: Nystatin SUSP 5 ML UD.LIQ PO SCH (08:35)
[2021-01-26] MEDS: allopurinoL 100 MG TABLET PO SCH ×2 (08:35→20:42)
[2021-01-26] MEDS: carvediloL 6.25 MG TABLET PO SCH ×2 (08:36→17:39)
[2021-01-26] MEDS: Insulin LISPRO 300 UNITS/3 ML VIAL SUBQ SCH ×4 (08:36→20:44)
[2021-01-26] MEDS: Vancomycin Oral Soln 125 MG/2.5 ML UDC PO SCH ×4 (08:36→20:42)
[2021-01-26] MEDS: Magnesium Oxide 400 MG TABLET PO SCH (08:36)
[2021-01-26 10:19] LABS: Hematocrit 27.5 % (35.3-44.9); Hemoglobin 9.4 g/dL (11.5-15.4); Lymphocytes # 0.9 K/mcL (0.6-4.6); Mean Corpuscular HGB Conc 34.2 g/dL (31.6-35.5); Mean Corpuscular Hemoglobin 28.4 pg (28.0-33.3); Mean Corpuscular Volume 83.1 fL (83.0-100.0); Mean Platelet Volume 12.5 fL (9.4-12.4); Monocytes # 0.1 K/mcL (0.0-1.3); Neutrophils # 0.3 K/mcL (1.6-8.9); Platelet Count 177 K/mcL (140-400); Red Blood Count 3.31 M/mcL (3.82-4.97); Red Cell Distribution Width 14.1 % (11.5-14.5); White Blood Count 1.3 K/mcL (4.3-11.1)
[2021-01-26 10:37] LABS: Albumin 3.3 g/dL (3.5-5.7); Albumin/Globulin Ratio 1.1 (1.1-2.2); Bilirubin,Total 1.1 mg/dL (0.3-1.0); Calcium 9.1 mg/dL (8.6-10.3); Globulin 3.1 g/dL (2.4-3.5); Potassium 3.8 mEq/L (3.5-5.1); Total Protein 6.4 g/dL (6.4-8.9)
[2021-01-26 10:58] LABS: Eosinophils # 0.1 K/mcL (0.0-0.6); Large Platelets Present (Not Present); Platelet Estimate Normal (Normal); Reactive Lymphocytes Present (Not Present)
[2021-01-26] MEDS: Pantoprazole 40 MG VIAL IVP SCH ×2 (12:58→20:42)
[2021-01-26] MEDS: Cholecalciferol (D-3) 1,000 UNIT (25MCG) TABLET PO SCH (13:00)
[2021-01-26] MEDS: Cyanocobalamin (B-12) 1,000 MCG TABLET PO SCH (13:00)
[2021-01-26] MEDS: Magic Mouthwash 10 ML UD Cup PO SCH ×2 (13:01→17:40)
[2021-01-26] MEDS: Fluconazole 200 MG/100 ML 200 MG/100 ML BAG IVPB SCH (13:01)
[2021-01-27 06:34] LABS: Basophils % 0.5 %
[2021-01-27 06:36] LABS: Eosinophils % 1.6 %; Hemoglobin 8.8 g/dL (11.5-15.4); Immature Granulocytes % 0.5 % (0-4); Immature Platelets 7.8 % (1.1-6.1); Lymphocytes # 1.4 K/mcL (0.6-4.6); Lymphocytes % 75.7 %; Mean Corpuscular HGB Conc 33.8 g/dL (31.6-35.5); Mean Corpuscular Hemoglobin 27.9 pg (28.0-33.3); Mean Corpuscular Volume 82.5 fL (83.0-100.0); Mean Platelet Volume 12.8 fL (9.4-12.4); Neutrophils # 0.2 K/mcL (1.6-8.9); Platelet Count 184 K/mcL (140-400); Red Blood Count 3.15 M/mcL (3.82-4.97); Red Cell Distribution Width 14.3 % (11.5-14.5); Segmented Neutrophils % 8.7 %; White Blood Count 1.9 K/mcL (4.3-11.1)
[2021-01-27 06:41] LABS: Monocytes # 0.3 K/mcL (0.0-1.3)
[2021-01-27 06:58] LABS: Platelet Estimate Normal (Normal)
[2021-01-27 07:30] LABS: BUN/Creatinine Ratio 15 (6-26); Blood Urea Nitrogen 16 mg/dL (8-23); Calcium 9.5 mg/dL (8.6-10.3); Carbon Dioxide 23 mEq/L (23-29); Chloride 107 mEq/L (98-107); Glucose 186 mg/dL (70-105); Magnesium 1.4 mg/dL (1.6-2.6); Osmolality,Calculated 292 (280-300); Potassium 4.3 mEq/L (3.5-5.1); Sodium 138 mEq/L (136-145); eGFR For African Americans > 60 (> 60); eGFR For Non-African Americans 50 (> 60)
[2021-01-27 08:04] LABS: Estimated Average Glucose 166 mg/dl; Hemoglobin A1C 7.4 %
[2021-01-27] MEDS: carvediloL 6.25 MG TABLET PO SCH ×2 (08:17→16:38)
[2021-01-27] MEDS: Magic Mouthwash 10 ML UD Cup PO SCH ×3 (08:17→16:38)
[2021-01-27] MEDS: allopurinoL 100 MG TABLET PO SCH ×2 (08:17→20:18)
[2021-01-27] MEDS: Loratadine 10 MG TABLET PO SCH (08:17)
[2021-01-27] MEDS: Vancomycin Oral Soln 125 MG/2.5 ML UDC PO SCH ×4 (08:17→20:17)
[2021-01-27] MEDS: Pantoprazole 40 MG VIAL IVP SCH ×2 (08:17→20:18)
[2021-01-27] MEDS: Magnesium Oxide 400 MG TABLET PO SCH (08:18)
[2021-01-27] MEDS: Fluconazole 200 MG/100 ML 200 MG/100 ML BAG IVPB SCH (08:18)
[2021-01-27] MEDS: Insulin LISPRO 300 UNITS/3 ML VIAL SUBQ SCH ×4 (08:48→20:18)
[2021-01-27] MEDS: Acetaminophen 325 MG TABLET PO PRN (19:09)
[2021-01-28 05:45] LABS: Red Cell Distribution Width 14.6 % (11.5-14.5)
[2021-01-28 05:47] LABS: Basophils % 0.6 %; Eosinophils # 0.1 K/mcL (0.0-0.6); Hematocrit 26.1 % (35.3-44.9); Hemoglobin 8.6 g/dL (11.5-15.4); Immature Platelets 10.3 % (1.1-6.1); Lymphocytes # 1.2 K/mcL (0.6-4.6); Mean Corpuscular Hemoglobin 27.3 pg (28.0-33.3); Mean Corpuscular Volume 82.9 fL (83.0-100.0); Mean Platelet Volume 12.5 fL (9.4-12.4); Monocytes # 0.4 K/mcL (0.0-1.3); Monocytes % 20.9 %; Neutrophils # 0.2 K/mcL (1.6-8.9); Nucleated Red Blood Cells 2.8 /100 WBC (0); Platelet Count 224 K/mcL (140-400); Red Blood Count 3.15 M/mcL (3.82-4.97); Segmented Neutrophils % 9.5 %; White Blood Count 1.8 K/mcL (4.3-11.1)
[2021-01-28 05:54] LABS: BUN/Creatinine Ratio 14 (6-26); Blood Urea Nitrogen 15 mg/dL (8-23); Calcium 9.6 mg/dL (8.6-10.3); Carbon Dioxide 23 mEq/L (23-29); Chloride 106 mEq/L (98-107); Glucose 227 mg/dL (70-105); Magnesium 1.7 mg/dL (1.6-2.6); Osmolality,Calculated 294 (280-300); Potassium 4.6 mEq/L (3.5-5.1); Sodium 138 mEq/L (136-145); eGFR For African Americans > 60 (> 60); eGFR For Non-African Americans 50 (> 60)
[2021-01-28 06:44] LABS: Platelet Estimate Normal (Normal); Reactive Lymphocytes Present (Not Present)
[2021-01-28] MEDS: Pantoprazole 40 MG VIAL IVP SCH ×2 (09:02→20:27)
[2021-01-28] MEDS: Vancomycin Oral Soln 125 MG/2.5 ML UDC PO SCH ×4 (09:02→20:27)
[2021-01-28] MEDS: allopurinoL 100 MG TABLET PO SCH ×2 (09:02→20:39)
[2021-01-28] MEDS: Loratadine 10 MG TABLET PO SCH (09:02)
[2021-01-28] MEDS: carvediloL 6.25 MG TABLET PO SCH ×2 (09:02→16:09)
[2021-01-28] MEDS: Magnesium Oxide 400 MG TABLET PO SCH (09:03)
[2021-01-28] MEDS: Fluconazole 200 MG/100 ML 200 MG/100 ML BAG IVPB SCH (09:03)
[2021-01-28] MEDS: Insulin LISPRO 300 UNITS/3 ML VIAL SUBQ SCH ×4 (09:07→20:39)
[2021-01-28] MEDS: Magic Mouthwash 10 ML UD Cup PO SCH ×3 (09:09→16:08)
[2021-01-28] MEDS ORDERED: *HR* Labetalol 20 MG/4 ML SYRINGE IVP ONE (11:32)
[2021-01-28] MEDS: Cyanocobalamin (B-12) 1,000 MCG TABLET PO SCH (14:15)
[2021-01-28] MEDS: Cholecalciferol (D-3) 1,000 UNIT (25MCG) TABLET PO SCH (14:15)
[2021-01-28] MEDS: Ondansetron 4 MG/2 ML VIAL IVP PRN (14:49)
[2021-01-28] MEDS: Psyllium 1 PACKET POWD.PACK PO SCH ×2 (16:08→20:39)
[2021-01-29 05:26] LABS: Basophils # 0.1 K/mcL (0.0-0.2); Basophils % 1.5 %; Eosinophils % 0.5 %; Hematocrit 27.8 % (35.3-44.9); Hemoglobin 9.1 g/dL (11.5-15.4); Immature Granulocytes % 4.9 % (0-4); Lymphocytes % 44.2 %; Mean Corpuscular HGB Conc 32.7 g/dL (31.6-35.5); Mean Corpuscular Hemoglobin 26.9 pg (28.0-33.3); Mean Corpuscular Volume 82.2 fL (83.0-100.0); Mean Platelet Volume 12.3 fL (9.4-12.4); Monocytes # 1.3 K/mcL (0.0-1.3); Monocytes % 21.8 %; Neutrophils # 1.6 K/mcL (1.6-8.9); Nucleated Red Blood Cells 5.4 /100 WBC (0); Platelet Count 232 K/mcL (140-400); Red Blood Count 3.38 M/mcL (3.82-4.97); Red Cell Distribution Width 14.6 % (11.5-14.5); Segmented Neutrophils % 27.1 %
[2021-01-29 05:33] LABS: Lymphocytes # 2.7 K/mcL (0.6-4.6)
[2021-01-29 05:44] LABS: Calcium 9.5 mg/dL (8.6-10.3); Magnesium 1.8 mg/dL (1.6-2.6); Potassium 3.8 mEq/L (3.5-5.1)
[2021-01-29 05:47] LABS: Platelet Estimate Normal (Normal); Reactive Lymphocytes Present (Not Present)
[2021-01-29] MEDS: Fluconazole 200 MG/100 ML 200 MG/100 ML BAG IVPB SCH (08:30)
[2021-01-29] MEDS: Loratadine 10 MG TABLET PO SCH (08:31)
[2021-01-29] MEDS: Insulin LISPRO 300 UNITS/3 ML VIAL SUBQ SCH ×4 (08:31→20:33)
[2021-01-29] MEDS: Psyllium 1 PACKET POWD.PACK PO SCH ×3 (08:31→20:33)
[2021-01-29] MEDS: Vancomycin Oral Soln 125 MG/2.5 ML UDC PO SCH ×4 (08:32→20:33)
[2021-01-29] MEDS: allopurinoL 100 MG TABLET PO SCH ×2 (08:32→20:33)
[2021-01-29] MEDS: carvediloL 6.25 MG TABLET PO SCH ×2 (08:32→17:11)
[2021-01-29] MEDS: Magnesium Oxide 400 MG TABLET PO SCH (08:32)
[2021-01-29] MEDS: Magic Mouthwash 10 ML UD Cup PO SCH ×3 (08:32→17:11)
[2021-01-29] MEDS: Pantoprazole 40 MG VIAL IVP SCH ×2 (08:32→20:34)
[2021-01-29] MEDS: Acyclovir 500 MG in D5% in Water 100 ML IVPB SCH ×3 (08:44→23:44)
[2021-01-29] MEDS ORDERED: 0.9 % Sodium Chloride 1,000 ML IVC SCH (13:45)
[2021-01-30 06:13] LABS: Hematocrit 27.2 % (35.3-44.9); Hemoglobin 8.9 g/dL (11.5-15.4); Mean Corpuscular HGB Conc 32.7 g/dL (31.6-35.5); Mean Corpuscular Hemoglobin 27.1 pg (28.0-33.3); Mean Corpuscular Volume 82.7 fL (83.0-100.0); Mean Platelet Volume 12.3 fL (9.4-12.4); Platelet Count 230 K/mcL (140-400); Red Blood Count 3.29 M/mcL (3.82-4.97); Red Cell Distribution Width 14.5 % (11.5-14.5)
[2021-01-30 06:20] LABS: White Blood Count 14.9 K/mcL (4.3-11.1)
[2021-01-30 06:36] LABS: Monocytes # 0.6 K/mcL (0.0-1.3); Neutrophils # 11.3 K/mcL (1.6-8.9); Platelet Estimate Normal (Normal); Poikilocytosis 1+ (Not Present)
[2021-01-30 06:38] LABS: Calcium 9.2 mg/dL (8.6-10.3); Magnesium 1.7 mg/dL (1.6-2.6); Phosphorous 4.1 mg/dL (2.7-4.5); Potassium 3.6 mEq/L (3.5-5.1)
[2021-01-30] MEDS: Magic Mouthwash 10 ML UD Cup PO SCH ×3 (08:47→18:30)
[2021-01-30] MEDS: Insulin LISPRO 300 UNITS/3 ML VIAL SUBQ SCH ×4 (08:51→20:25)
[2021-01-30] MEDS: 0.9 % Sodium Chloride 1,000 ML IVC SCH (08:54)
[2021-01-30] MEDS: Loratadine 10 MG TABLET PO SCH (10:34)
[2021-01-30] MEDS: Psyllium 1 PACKET POWD.PACK PO SCH ×3 (10:34→20:25)
[2021-01-30] MEDS: allopurinoL 100 MG TABLET PO SCH ×2 (10:34→20:24)
[2021-01-30] MEDS: Pantoprazole 40 MG VIAL IVP SCH ×2 (10:34→20:25)
[2021-01-30] MEDS: Vancomycin Oral Soln 125 MG/2.5 ML UDC PO SCH ×4 (10:35→20:24)
[2021-01-30] MEDS: Magnesium Oxide 400 MG TABLET PO SCH (10:36)
[2021-01-30] MEDS: Acyclovir 500 MG in D5% in Water 100 ML IVPB SCH ×2 (10:55→18:31)
[2021-01-30] MEDS: carvediloL 6.25 MG TABLET PO SCH ×2 (10:55→18:30)
[2021-01-30] MEDS: Cyanocobalamin (B-12) 1,000 MCG TABLET PO SCH (12:06)
[2021-01-30] MEDS: Fluconazole 200 MG/100 ML 200 MG/100 ML BAG IVPB SCH (13:10)
[2021-01-30 17:08] LABS: Bacteria,Urine Many per hpf (None-Few); Bilirubin,Urine Small (Negative); Blood,Urine Small (Negative); Budding Yeast,Urine Few per hpf (None Seen); Clarity,Urine Turbid (Clear); Color,Urine Yellow (Yellow); Glucose,Urine (UA) Normal (Normal); Hyaline Casts,Urine Many per lpf (None Seen); Ketones,Urine Trace mg/dL (Negative); Leukocyte Esterase,Urine Small (Negative); Mucus,Urine Few per lpf (None-Few); Nitrite,Urine Negative (Negative); PH,Urine 5.5 pH Units (5.0-8.0); Protein,Urine 100 mg/dL (Neg-Trace); Squamous Epithelial Cell,Urine Few per hpf (None-Few); Urobilinogen,Urine Normal (Normal)
[2021-01-31] MEDS: 0.9 % Sodium Chloride 1,000 ML IVC SCH (05:05)
[2021-01-31 05:21] LABS: Hematocrit 25.7 % (35.3-44.9); Hemoglobin 8.8 g/dL (11.5-15.4); Mean Corpuscular HGB Conc 34.2 g/dL (31.6-35.5); Mean Corpuscular Hemoglobin 28.3 pg (28.0-33.3); Mean Corpuscular Volume 82.6 fL (83.0-100.0); Mean Platelet Volume 11.9 fL (9.4-12.4); Nucleated Red Blood Cells 1.4 /100 WBC (0); Platelet Count 231 K/mcL (140-400); Red Blood Count 3.11 M/mcL (3.82-4.97); Red Cell Distribution Width 14.7 % (11.5-14.5)
[2021-01-31 05:40] LABS: Albumin 3.1 g/dL (3.5-5.7); Albumin/Globulin Ratio 1.3 (1.1-2.2); Bilirubin,Direct 0.2 mg/dL (0.0-0.2); Bilirubin,Indirect 0.5 mg/dL (0.0-1.0); Bilirubin,Total 0.7 mg/dL (0.3-1.0); Calcium 8.9 mg/dL (8.6-10.3); Globulin 2.4 g/dL (2.4-3.5); Magnesium 1.7 mg/dL (1.6-2.6); Phosphorous 4.2 mg/dL (2.7-4.5); Potassium 3.4 mEq/L (3.5-5.1); Total Protein 5.5 g/dL (6.4-8.9)
[2021-01-31 05:47] LABS: Lymphocytes # 8.3 K/mcL (0.6-4.6); Monocytes # 0.7 K/mcL (0.0-1.3)
[2021-01-31 05:48] LABS: Platelet Estimate Normal (Normal); Toxic Granulation Present (Not Present)
[2021-01-31] MEDS: Magnesium Oxide 400 MG TABLET PO SCH (07:45)
[2021-01-31] MEDS: carvediloL 6.25 MG TABLET PO SCH ×2 (07:45→16:42)
[2021-01-31] MEDS: Magic Mouthwash 10 ML UD Cup PO SCH ×3 (07:45→16:42)
[2021-01-31] MEDS: allopurinoL 100 MG TABLET PO SCH ×2 (07:46→20:16)
[2021-01-31] MEDS: Pantoprazole 40 MG VIAL IVP SCH ×2 (07:46→20:14)
[2021-01-31] MEDS: Vancomycin Oral Soln 125 MG/2.5 ML UDC PO SCH ×4 (07:46→20:15)
[2021-01-31] MEDS: Loratadine 10 MG TABLET PO SCH (07:46)
[2021-01-31] MEDS: Fluconazole 200 MG/100 ML 200 MG/100 ML BAG IVPB SCH (07:46)
[2021-01-31] MEDS: Insulin LISPRO 300 UNITS/3 ML VIAL SUBQ SCH ×4 (07:58→20:13)
[2021-01-31] MEDS: Acyclovir 500 MG in D5% in Water 100 ML IVPB SCH (09:30)
[2021-01-31] MEDS: Cholecalciferol (D-3) 1,000 UNIT (25MCG) TABLET PO SCH (11:43)
[2021-01-31] MEDS: Cyanocobalamin (B-12) 1,000 MCG TABLET PO SCH (11:43)
[2021-01-31] MEDS ORDERED: Ringers Solution, Lactated 1,000 ML IVC SCH (12:30)
[2021-01-31] MEDS: Ringers Solution, Lactated 1,000 ML IVC SCH (14:22)
[2021-01-31] MEDS: traZODone 50 MG TABLET PO SCH (20:15)
[2021-02-01] MEDS: Ringers Solution, Lactated 1,000 ML IVC SCH (02:14)
[2021-02-01 07:16] LABS: Hematocrit 26.4 % (35.3-44.9); Hemoglobin 8.7 g/dL (11.5-15.4); Mean Corpuscular Hemoglobin 27.6 pg (28.0-33.3); Mean Corpuscular Volume 83.8 fL (83.0-100.0); Mean Platelet Volume 11.9 fL (9.4-12.4); Nucleated Red Blood Cells 1.3 /100 WBC (0); Platelet Count 216 K/mcL (140-400); Red Blood Count 3.15 M/mcL (3.82-4.97); Red Cell Distribution Width 14.6 % (11.5-14.5)
[2021-02-01 07:39] LABS: Calcium 8.7 mg/dL (8.6-10.3); Magnesium 1.5 mg/dL (1.6-2.6); Potassium 3.4 mEq/L (3.5-5.1)
[2021-02-01] MEDS: Magic Mouthwash 10 ML UD Cup PO SCH ×3 (07:49→17:47)
[2021-02-01 07:55] LABS: Lymphocytes # 4.2 K/mcL (0.6-4.6); Monocytes # 1.8 K/mcL (0.0-1.3); Neutrophils # 8.4 K/mcL (1.6-8.9); Platelet Estimate Normal (Normal); Reactive Lymphocytes Present (Not Present); Toxic Granulation Present (Not Present)
[2021-02-01] MEDS: Insulin LISPRO 300 UNITS/3 ML VIAL SUBQ SCH ×4 (10:07→20:34)
[2021-02-01] MEDS: allopurinoL 100 MG TABLET PO SCH ×2 (10:08→20:36)
[2021-02-01] MEDS: Loratadine 10 MG TABLET PO SCH (10:08)
[2021-02-01] MEDS: Vancomycin Oral Soln 125 MG/2.5 ML UDC PO SCH ×4 (10:08→20:35)
[2021-02-01] MEDS: Magnesium Oxide 400 MG TABLET PO SCH (10:08)
[2021-02-01] MEDS: Pantoprazole 40 MG VIAL IVP SCH ×2 (10:08→20:36)
[2021-02-01] MEDS: Acyclovir 500 MG in D5% in Water 100 ML IVPB SCH (10:09)
[2021-02-01] MEDS: amLODIPine 5 MG TABLET PO SCH (10:09)
[2021-02-01] MEDS: carvediloL 6.25 MG TABLET PO SCH ×2 (10:09→17:47)
[2021-02-01] MEDS: Fluconazole 200 MG/100 ML 200 MG/100 ML BAG IVPB SCH (11:47)
[2021-02-01] MEDS: traZODone 50 MG TABLET PO SCH (20:36)
[2021-02-01] MEDS: Ondansetron 4 MG/2 ML VIAL IVP PRN (21:34)
[2021-02-02 02:54] LABS: Hematocrit 29.4 % (35.3-44.9); Hemoglobin 9.4 g/dL (11.5-15.4); Mean Corpuscular Hemoglobin 26.9 pg (28.0-33.3); Mean Platelet Volume 12.1 fL (9.4-12.4); Nucleated Red Blood Cells 1.7 /100 WBC (0); Platelet Count 233 K/mcL (140-400); Red Cell Distribution Width 14.9 % (11.5-14.5); White Blood Count 14.3 K/mcL (4.3-11.1)
[2021-02-02 02:55] LABS: Calcium 9.1 mg/dL (8.6-10.3); Magnesium 1.6 mg/dL (1.6-2.6); Potassium 3.9 mEq/L (3.5-5.1)
[2021-02-02 03:43] LABS: Anisocytosis 1+ (Not Present); Monocytes # 1.7 K/mcL (0.0-1.3); Polychromasia 1+ (Not Present)
[2021-02-02 03:44] LABS: Platelet Estimate Normal (Normal); Reactive Lymphocytes Present (Not Present); Toxic Granulation Present (Not Present)
[2021-02-02] MEDS: carvediloL 6.25 MG TABLET PO SCH ×2 (09:43→16:49)
[2021-02-02] MEDS: Magic Mouthwash 10 ML UD Cup PO SCH ×3 (09:44→16:49)
[2021-02-02] MEDS: Pantoprazole 40 MG VIAL IVP SCH ×2 (09:44→20:53)
[2021-02-02] MEDS: Loratadine 10 MG TABLET PO SCH (09:45)
[2021-02-02] MEDS: allopurinoL 100 MG TABLET PO SCH ×2 (09:46→20:54)
[2021-02-02] MEDS: Acetaminophen 325 MG TABLET PO PRN (09:46)
[2021-02-02] MEDS: Fluconazole 200 MG/100 ML 200 MG/100 ML BAG IVPB SCH (09:47)
[2021-02-02] MEDS: Vancomycin Oral Soln 125 MG/2.5 ML UDC PO SCH ×4 (09:47→20:54)
[2021-02-02] MEDS: amLODIPine 5 MG TABLET PO SCH (09:47)
[2021-02-02] MEDS: Magnesium Oxide 400 MG TABLET PO SCH (09:47)
[2021-02-02] MEDS: Acyclovir 500 MG in D5% in Water 100 ML IVPB SCH (09:48)
[2021-02-02] MEDS: Insulin LISPRO 300 UNITS/3 ML VIAL SUBQ SCH ×4 (10:00→20:51)
[2021-02-02] MEDS: Cholecalciferol (D-3) 1,000 UNIT (25MCG) TABLET PO SCH (12:48)
[2021-02-02] MEDS: Cyanocobalamin (B-12) 1,000 MCG TABLET PO SCH (12:49)
[2021-02-02] MEDS ORDERED: cefTRIAXone 2,000 MG in 0.9 % Sodium Chloride Mini Bag 100 ML IVPB ONE (14:29)
[2021-02-02] MEDS: Piperacillin/Tazobactam 3.375 GM in 0.9 % Sodium Chloride Mini Bag 100 ML IVPB SCH (16:48)
[2021-02-02 18:20] LABS: Adenovirus Not Detected (Not Detect); Bordetella Pertussis Not Detected (Not Detect); Chlamydophila pneumoniae Not Detected (Not Detect); Coronavirus 229E Not Detected (Not Detect); Coronavirus HKU1 Not Detected (Not Detect); Coronavirus NL63 Not Detected (Not Detect); Coronavirus OC43 Not Detected (Not Detect); Human Metapneumovirus Not Detected (Not Detect); Human Rhinovirus/Enterovirus Not Detected (Not Detect); Influenza A Subtype 2009 H1 Not Detected (Not Detect); Influenza B Not Detected (Not Detect); Mycoplasma pneumoniae Not Detected (Not Detect); Parainfluenza Virus 1 Not Detected (Not Detect); Parainfluenza Virus 2 Not Detected (Not Detect); Parainfluenza Virus 3 Not Detected (Not Detect); Parainfluenza Virus 4 Not Detected (Not Detect); Respiratory Syncytial Virus Not Detected (Not Detect); SARS-CoV-2 Not Detected (Not Detect)
[2021-02-02] MEDS: traZODone 50 MG TABLET PO SCH (20:54)
[2021-02-03] MEDS: Piperacillin/Tazobactam 3.375 GM in 0.9 % Sodium Chloride Mini Bag 100 ML IVPB SCH ×3 (01:00→21:33)
[2021-02-03 01:29] LABS: Basophils # 0.1 K/mcL (0.0-0.2); Basophils % 0.4 %; Hematocrit 23.7 % (35.3-44.9); Hemoglobin 7.9 g/dL (11.5-15.4); Immature Granulocytes % 6.8 % (0-4); Lymphocytes # 3.4 K/mcL (0.6-4.6); Mean Corpuscular HGB Conc 33.3 g/dL (31.6-35.5); Mean Corpuscular Hemoglobin 27.5 pg (28.0-33.3); Mean Corpuscular Volume 82.6 fL (83.0-100.0); Mean Platelet Volume 11.9 fL (9.4-12.4); Monocytes % 9.6 %; Neutrophils # 14.3 K/mcL (1.6-8.9); Nucleated Red Blood Cells 0.7 /100 WBC (0); Platelet Count 169 K/mcL (140-400); Red Blood Count 2.87 M/mcL (3.82-4.97); Red Cell Distribution Width 14.8 % (11.5-14.5); Segmented Neutrophils % 67.2 %; White Blood Count 21.3 K/mcL (4.3-11.1)
[2021-02-03 01:49] LABS: Calcium 8.7 mg/dL (8.6-10.3); Magnesium 1.7 mg/dL (1.6-2.6); Potassium 3.3 mEq/L (3.5-5.1)
[2021-02-03 02:45] LABS: Platelet Estimate Normal (Normal); Smudge Cells Present (Not Present); Toxic Granulation Present (Not Present)
[2021-02-03] MEDS: Fluconazole 200 MG/100 ML 200 MG/100 ML BAG IVPB SCH (08:35)
[2021-02-03] MEDS: Pantoprazole 40 MG VIAL IVP SCH ×2 (08:38→21:36)
[2021-02-03] MEDS: Loratadine 10 MG TABLET PO SCH (08:40)
[2021-02-03] MEDS: allopurinoL 100 MG TABLET PO SCH ×2 (08:41→21:35)
[2021-02-03] MEDS: amLODIPine 5 MG TABLET PO SCH (08:41)
[2021-02-03] MEDS: carvediloL 6.25 MG TABLET PO SCH ×2 (08:41→17:13)
[2021-02-03] MEDS: Magic Mouthwash 10 ML UD Cup PO SCH ×3 (08:42→17:16)
[2021-02-03] MEDS: Magnesium Oxide 400 MG TABLET PO SCH (08:43)
[2021-02-03] MEDS: Insulin LISPRO 300 UNITS/3 ML VIAL SUBQ SCH ×4 (08:52→21:40)
[2021-02-03] MEDS ORDERED: levoFLOXacin 750 MG TABLET PO ONE (13:00)
[2021-02-03] MEDS: Nystatin SUSP 5 ML UD.LIQ PO SCH ×2 (13:11→17:14)
[2021-02-03] MEDS: Vancomycin Oral Soln 125 MG/2.5 ML UDC PO SCH ×2 (17:16→21:34)
[2021-02-03] MEDS: traZODone 50 MG TABLET PO SCH (21:35)
[2021-02-04] MEDS: Magnesium Oxide 400 MG TABLET PO SCH (08:42)
[2021-02-04] MEDS: Nystatin SUSP 5 ML UD.LIQ PO SCH ×4 (08:42→20:35)
[2021-02-04] MEDS: Loratadine 10 MG TABLET PO SCH (08:43)
[2021-02-04] MEDS: allopurinoL 100 MG TABLET PO SCH ×2 (08:43→20:36)
[2021-02-04] MEDS: carvediloL 6.25 MG TABLET PO SCH ×2 (08:43→16:40)
[2021-02-04] MEDS: amLODIPine 5 MG TABLET PO SCH (08:43)
[2021-02-04] MEDS: Vancomycin Oral Soln 125 MG/2.5 ML UDC PO SCH ×4 (08:45→20:35)
[2021-02-04] MEDS: Piperacillin/Tazobactam 3.375 GM in 0.9 % Sodium Chloride Mini Bag 100 ML IVPB SCH ×3 (08:46→23:30)
[2021-02-04] MEDS: Magic Mouthwash 10 ML UD Cup PO SCH ×3 (08:46→16:40)
[2021-02-04] MEDS: Pantoprazole 40 MG VIAL IVP SCH ×2 (08:46→20:35)
[2021-02-04] MEDS: Insulin LISPRO 300 UNITS/3 ML VIAL SUBQ SCH ×4 (08:49→21:52)
[2021-02-04 09:02] LABS: Hematocrit 23.5 % (35.3-44.9); Hemoglobin 7.7 g/dL (11.5-15.4); Mean Corpuscular HGB Conc 32.8 g/dL (31.6-35.5); Mean Corpuscular Hemoglobin 27.3 pg (28.0-33.3); Mean Corpuscular Volume 83.3 fL (83.0-100.0); Mean Platelet Volume 12.2 fL (9.4-12.4); Nucleated Red Blood Cells 0.5 /100 WBC (0); Platelet Count 171 K/mcL (140-400); Red Blood Count 2.82 M/mcL (3.82-4.97); Red Cell Distribution Width 14.9 % (11.5-14.5); White Blood Count 22.6 K/mcL (4.3-11.1)
[2021-02-04 09:20] LABS: Calcium 8.9 mg/dL (8.6-10.3); Potassium 3.5 mEq/L (3.5-5.1)
[2021-02-04 09:33] LABS: Lymphocytes # 3.2 K/mcL (0.6-4.6); Monocytes # 0.2 K/mcL (0.0-1.3); Neutrophils # 18.8 K/mcL (1.6-8.9); Platelet Estimate Normal (Normal); Toxic Granulation Present (Not Present)
[2021-02-04] MEDS: Cyanocobalamin (B-12) 1,000 MCG TABLET PO SCH (13:45)
[2021-02-04] MEDS: Cholecalciferol (D-3) 1,000 UNIT (25MCG) TABLET PO SCH (13:45)
[2021-02-04] MEDS: traZODone 50 MG TABLET PO SCH (20:36)
[2021-02-04] MEDS ORDERED: *HR* LORazepam 2 MG/ML VIAL IVP ONE (21:16)
[2021-02-05] MEDS: Insulin LISPRO 300 UNITS/3 ML VIAL SUBQ SCH ×4 (08:00→20:45)
[2021-02-05 09:17] LABS: Basophils # 0.1 K/mcL (0.0-0.2); Basophils % 0.6 %; Hematocrit 23.4 % (35.3-44.9); Hemoglobin 7.7 g/dL (11.5-15.4); Immature Granulocytes % 11.3 % (0-4); Lymphocytes # 2.9 K/mcL (0.6-4.6); Lymphocytes % 15.4 %; Mean Corpuscular HGB Conc 32.9 g/dL (31.6-35.5); Mean Corpuscular Hemoglobin 27.2 pg (28.0-33.3); Mean Corpuscular Volume 82.7 fL (83.0-100.0); Mean Platelet Volume 11.9 fL (9.4-12.4); Monocytes # 1.8 K/mcL (0.0-1.3); Monocytes % 9.7 %; Neutrophils # 11.8 K/mcL (1.6-8.9); Nucleated Red Blood Cells 0.5 /100 WBC (0); Platelet Count 217 K/mcL (140-400); Red Blood Count 2.83 M/mcL (3.82-4.97); Red Cell Distribution Width 14.8 % (11.5-14.5); White Blood Count 18.8 K/mcL (4.3-11.1)
[2021-02-05] MEDS: Magic Mouthwash 10 ML UD Cup PO SCH ×3 (09:36→17:19)
[2021-02-05 09:37] LABS: Calcium 9.3 mg/dL (8.6-10.3); Potassium 3.2 mEq/L (3.5-5.1)
[2021-02-05] MEDS: Vancomycin Oral Soln 125 MG/2.5 ML UDC PO SCH ×4 (09:37→20:45)
[2021-02-05] MEDS: Nystatin SUSP 5 ML UD.LIQ PO SCH ×4 (09:37→20:44)
[2021-02-05 10:10] LABS: Platelet Estimate Normal (Normal); Toxic Granulation Present (Not Present)
[2021-02-05] MEDS: Magnesium Oxide 400 MG TABLET PO SCH (10:24)
[2021-02-05] MEDS: Piperacillin/Tazobactam 3.375 GM in 0.9 % Sodium Chloride Mini Bag 100 ML IVPB SCH ×2 (10:24→16:44)
[2021-02-05] MEDS: allopurinoL 100 MG TABLET PO SCH ×2 (10:24→20:44)
[2021-02-05] MEDS: Loratadine 10 MG TABLET PO SCH (10:24)
[2021-02-05] MEDS: Pantoprazole 40 MG VIAL IVP SCH ×2 (10:24→20:44)
[2021-02-05] MEDS: amLODIPine 5 MG TABLET PO SCH (10:25)
[2021-02-05] MEDS: carvediloL 6.25 MG TABLET PO SCH ×2 (10:26→17:19)
[2021-02-05] MEDS: levoFLOXacin 750 MG TABLET PO SCH (12:55)
[2021-02-05] MEDS ORDERED: levoFLOXacin 500 MG TABLET PO SCH (13:00)
[2021-02-05] MEDS ORDERED: flumazeniL 0.5 MG/5 ML VIAL IVP ONE (16:19)
[2021-02-05] MEDS: traZODone 50 MG TABLET PO SCH (20:44)
[2021-02-06] MEDS: Piperacillin/Tazobactam 3.375 GM in 0.9 % Sodium Chloride Mini Bag 100 ML IVPB SCH ×4 (01:38→23:58)
[2021-02-06 01:52] LABS: Hematocrit 22.7 % (35.3-44.9); Hemoglobin 7.4 g/dL (11.5-15.4); Immature Granulocytes % 9.7 % (0-4); Lymphocytes % 18.1 %; Mean Corpuscular HGB Conc 32.6 g/dL (31.6-35.5); Mean Corpuscular Hemoglobin 26.7 pg (28.0-33.3); Mean Corpuscular Volume 81.9 fL (83.0-100.0); Mean Platelet Volume 11.8 fL (9.4-12.4); Platelet Count 236 K/mcL (140-400); Red Blood Count 2.77 M/mcL (3.82-4.97); Segmented Neutrophils % 60.4 %; White Blood Count 15.9 K/mcL (4.3-11.1)
[2021-02-06 01:53] LABS: Basophils # 0.1 K/mcL (0.0-0.2); Basophils % 0.7 %; Lymphocytes # 2.9 K/mcL (0.6-4.6); Monocytes # 1.8 K/mcL (0.0-1.3); Monocytes % 11.1 %; Neutrophils # 9.6 K/mcL (1.6-8.9); Nucleated Red Blood Cells 0.8 /100 WBC (0)
[2021-02-06 02:08] LABS: Calcium 9.1 mg/dL (8.6-10.3); Magnesium 1.6 mg/dL (1.6-2.6); Potassium 3.8 mEq/L (3.5-5.1)
[2021-02-06 02:14] LABS: Anisocytosis 1+ (Not Present); Platelet Estimate Normal (Normal)
[2021-02-06] MEDS: Nystatin SUSP 5 ML UD.LIQ PO SCH ×5 (09:13→21:19)
[2021-02-06] MEDS: Insulin LISPRO 300 UNITS/3 ML VIAL SUBQ SCH ×4 (09:13→21:18)
[2021-02-06] MEDS: Pantoprazole 40 MG VIAL IVP SCH ×2 (09:13→21:19)
[2021-02-06] MEDS: Vancomycin Oral Soln 125 MG/2.5 ML UDC PO SCH ×5 (09:13→21:18)
[2021-02-06] MEDS: carvediloL 6.25 MG TABLET PO SCH ×3 (09:14→17:34)
[2021-02-06] MEDS: amLODIPine 5 MG TABLET PO SCH ×2 (09:14→10:53)
[2021-02-06] MEDS: allopurinoL 100 MG TABLET PO SCH ×3 (09:14→21:19)
[2021-02-06] MEDS: Loratadine 10 MG TABLET PO SCH ×2 (09:14→10:52)
[2021-02-06] MEDS: Magnesium Oxide 400 MG TABLET PO SCH ×2 (09:14→10:52)
[2021-02-06] MEDS: Magic Mouthwash 10 ML UD Cup PO SCH ×3 (09:15→15:53)
[2021-02-06 11:41] LABS: ABG Base Excess 0 mEq/L (-2 to 3); ABG HCO3 26 mEq/L (21-27); ABG Oxygen Saturation 94 % (95-98); ABG PCO2 45 mmHg (35-45); ABG PH 7.37 pH Units (7.32-7.45); ABG PO2 75 mmHg (85-104); ABG TCO2 27 mEq/L (20-26)
[2021-02-06] MEDS: Iron Sucrose Complex 250 MG in 0.9 % Sodium Chloride 250 ML IVPB SCH (12:47)
[2021-02-06] MEDS: Cyanocobalamin (B-12) 1,000 MCG TABLET PO SCH (12:53)
[2021-02-07 02:36] LABS: Basophils # 0.1 K/mcL (0.0-0.2); Basophils % 0.4 %; Hematocrit 20.8 % (35.3-44.9); Hemoglobin 7.1 g/dL (11.5-15.4); Lymphocytes # 2.4 K/mcL (0.6-4.6); Lymphocytes % 17.5 %; Mean Corpuscular HGB Conc 34.1 g/dL (31.6-35.5); Mean Corpuscular Hemoglobin 27.8 pg (28.0-33.3); Mean Corpuscular Volume 81.6 fL (83.0-100.0); Mean Platelet Volume 11.2 fL (9.4-12.4); Monocytes # 1.5 K/mcL (0.0-1.3); Neutrophils # 8.9 K/mcL (1.6-8.9); Nucleated Red Blood Cells 0.6 /100 WBC (0); Platelet Count 253 K/mcL (140-400); Red Blood Count 2.55 M/mcL (3.82-4.97); Red Cell Distribution Width 15.2 % (11.5-14.5); Segmented Neutrophils % 65.1 %; White Blood Count 13.7 K/mcL (4.3-11.1)
[2021-02-07 02:55] LABS: Calcium 8.7 mg/dL (8.6-10.3); Magnesium 1.5 mg/dL (1.6-2.6); Potassium 3.5 mEq/L (3.5-5.1)
[2021-02-07 02:58] LABS: Platelet Estimate Normal (Normal); Toxic Granulation Present (Not Present)
[2021-02-07] MEDS: amLODIPine 5 MG TABLET PO SCH (10:00)
[2021-02-07] MEDS: allopurinoL 100 MG TABLET PO SCH ×2 (10:00→21:20)
[2021-02-07] MEDS: carvediloL 6.25 MG TABLET PO SCH ×2 (10:00→18:37)
[2021-02-07] MEDS: Nystatin SUSP 5 ML UD.LIQ PO SCH ×4 (10:00→21:20)
[2021-02-07] MEDS: Magnesium Oxide 400 MG TABLET PO SCH (10:00)
[2021-02-07] MEDS: Pantoprazole 40 MG VIAL IVP SCH ×2 (10:00→21:18)
[2021-02-07] MEDS: Vancomycin Oral Soln 125 MG/2.5 ML UDC PO SCH ×4 (10:00→21:20)
[2021-02-07] MEDS: Loratadine 10 MG TABLET PO SCH (10:00)
[2021-02-07] MEDS: levoFLOXacin 750 MG TABLET PO SCH (13:21)
[2021-02-07] MEDS: Cholecalciferol (D-3) 1,000 UNIT (25MCG) TABLET PO SCH (13:22)
[2021-02-07] MEDS: Cyanocobalamin (B-12) 1,000 MCG TABLET PO SCH (13:22)
[2021-02-07] MEDS: Insulin LISPRO 300 UNITS/3 ML VIAL SUBQ SCH ×4 (13:26→21:21)
[2021-02-07] MEDS: Iron Sucrose Complex 250 MG in 0.9 % Sodium Chloride 250 ML IVPB SCH (15:03)
[2021-02-07] MEDS ORDERED: Insulin DETEMIR 100 UNIT/ML X5UNITS SUBQ SCH (21:00)
[2021-02-07] MEDS: Piperacillin/Tazobactam 3.375 GM in 0.9 % Sodium Chloride Mini Bag 100 ML IVPB SCH ×3 (21:18→23:17)
[2021-02-08 03:22] LABS: Basophils # 0.1 K/mcL (0.0-0.2); Basophils % 0.4 %; Hemoglobin 7.7 g/dL (11.5-15.4); Immature Granulocytes % 4.2 % (0-4); Lymphocytes # 3.2 K/mcL (0.6-4.6); Lymphocytes % 19.5 %; Mean Corpuscular HGB Conc 33.5 g/dL (31.6-35.5); Mean Corpuscular Hemoglobin 27.1 pg (28.0-33.3); Mean Platelet Volume 10.9 fL (9.4-12.4); Monocytes # 1.6 K/mcL (0.0-1.3); Monocytes % 9.4 %; Nucleated Red Blood Cells 0.3 /100 WBC (0); Platelet Count 277 K/mcL (140-400); Red Blood Count 2.84 M/mcL (3.82-4.97); Red Cell Distribution Width 15.2 % (11.5-14.5); Segmented Neutrophils % 66.5 %; White Blood Count 16.5 K/mcL (4.3-11.1)
[2021-02-08 03:32] LABS: BUN/Creatinine Ratio 11 (6-26); Blood Urea Nitrogen 11 mg/dL (8-23); Calcium 8.8 mg/dL (8.6-10.3); Carbon Dioxide 26 mEq/L (23-29); Chloride 107 mEq/L (98-107); Glucose 192 mg/dL (70-105); Osmolality,Calculated 297 (280-300); Potassium 3.4 mEq/L (3.5-5.1); Sodium 141 mEq/L (136-145); eGFR For African Americans > 60 (> 60); eGFR For Non-African Americans 56 (> 60)
[2021-02-08 08:04] VITALS: BP 168/81; PULSE 90; TEMP 98.5; O2SAT 94
[2021-02-08] MEDS: Pantoprazole 40 MG VIAL IVP SCH (09:04)
[2021-02-08] MEDS: allopurinoL 100 MG TABLET PO SCH (09:05)
[2021-02-08] MEDS: Magnesium Oxide 400 MG TABLET PO SCH (09:05)
[2021-02-08] MEDS: Nystatin SUSP 5 ML UD.LIQ PO SCH ×2 (09:05→13:26)
[2021-02-08] MEDS: Loratadine 10 MG TABLET PO SCH (09:05)
[2021-02-08] MEDS: amLODIPine 5 MG TABLET PO SCH (09:06)
[2021-02-08] MEDS: Vancomycin Oral Soln 125 MG/2.5 ML UDC PO SCH ×2 (09:07→13:26)
[2021-02-08] MEDS: Iron Sucrose Complex 250 MG in 0.9 % Sodium Chloride 250 ML IVPB SCH (09:07)
[2021-02-08] MEDS: carvediloL 6.25 MG TABLET PO SCH (09:07)
[2021-02-08] MEDS: Insulin LISPRO 300 UNITS/3 ML VIAL SUBQ SCH (09:10)
[2021-02-08] MEDS ORDERED: levoFLOXacin 750 MG TABLET PO SCH (09:15)
[2021-02-08 11:48] LABS: Adenovirus Not Detected (Not Detect); Bordetella Pertussis Not Detected (Not Detect); Chlamydophila pneumoniae Not Detected (Not Detect); Coronavirus 229E Not Detected (Not Detect); Coronavirus HKU1 Not Detected (Not Detect); Coronavirus NL63 Not Detected (Not Detect); Coronavirus OC43 Not Detected (Not Detect); Human Metapneumovirus Not Detected (Not Detect); Human Rhinovirus/Enterovirus Not Detected (Not Detect); Influenza A Subtype 2009 H1 Not Detected (Not Detect); Influenza B Not Detected (Not Detect); Mycoplasma pneumoniae Not Detected (Not Detect); Parainfluenza Virus 1 Not Detected (Not Detect); Parainfluenza Virus 2 Not Detected (Not Detect); Parainfluenza Virus 3 Not Detected (Not Detect); Parainfluenza Virus 4 Not Detected (Not Detect); Respiratory Syncytial Virus Not Detected (Not Detect); SARS-CoV-2 Not Detected (Not Detect)
== END 2021-02-08 16:08 | disposition other institution (70) | DRG 368 ==
LOC: 3ANU 09:11 → EMEROOARM 09:11 → SUATTDRO 12:52 → 3ANU 14:02 → SUATTDRO 01-25 10:20
PROVIDERS: ADMIT Family Medicine; ATTEND Hospitalist
PROC: ENDOEBX (2021-01-24 13:05)

== ENCOUNTER 2021-03-31 09:46 | Inpatient (IN) ==
[2021-03-31] MEDS ORDERED: 0.9 % Sodium Chloride 1,000 ML IVC ONE ×2 (09:52→14:37)
[2021-03-31] MEDS ORDERED: Ondansetron 4 MG/2 ML VIAL IVP ONE (09:52)
[2021-03-31 10:26] LABS: Mean Corpuscular Hemoglobin 27.7 pg (28.0-33.3)
[2021-03-31 10:28] LABS: Hematocrit 25.4 % (35.3-44.9); Hemoglobin 8.5 g/dL (11.5-15.4); Mean Corpuscular HGB Conc 33.5 g/dL (31.6-35.5); Mean Corpuscular Volume 82.7 fL (83.0-100.0); Mean Platelet Volume 12.5 fL (9.4-12.4); Monocytes # 0.1 K/mcL (0.0-1.3); Red Blood Count 3.07 M/mcL (3.82-4.97); Red Cell Distribution Width 16.8 % (11.5-14.5); White Blood Count 1.4 K/mcL (4.3-11.1)
[2021-03-31 10:55] LABS: Alanine Aminotransferase 15 Units/L (7-52); Albumin 2.8 g/dL (3.5-5.7); Albumin/Globulin Ratio 1.2 (1.1-2.2); Alkaline Phosphatase 70 Units/L (34-104); Amylase 12 Units/L (29-103); Aspartate Amino Transferase 10 Units/L (13-39); BUN/Creatinine Ratio 14 (6-26); Bilirubin,Direct 0.5 mg/dL (0.0-0.2); Bilirubin,Indirect 1.1 mg/dL (0.0-1.0); Bilirubin,Total 1.6 mg/dL (0.3-1.0); Blood Urea Nitrogen 24 mg/dL (8-23); Calcium 8.3 mg/dL (8.6-10.3); Carbon Dioxide 27 mEq/L (23-29); Chloride 101 mEq/L (98-107); Globulin 2.3 g/dL (2.4-3.5); Glucose 137 mg/dL (70-105); Lipase < 3 Units/L (11-82); Osmolality,Calculated 288 (280-300); Potassium 3.7 mEq/L (3.5-5.1); Sodium 136 mEq/L (136-145); Total Protein 5.1 g/dL (6.4-8.9); Troponin I 0.04 ng/mL (< 0.04); eGFR For African Americans 36 (> 60); eGFR For Non-African Americans 29 (> 60)
[2021-03-31 10:58] LABS: Platelet Count 57 K/mcL (140-400)
[2021-03-31 11:15] LABS: Lymphocytes # 1.3 K/mcL (0.6-4.6); Neutrophils # 0.1 K/mcL (1.6-8.9); Platelet Estimate Decreased (Normal); Reactive Lymphocytes Present (Not Present)
[2021-03-31 11:53] LABS: Influenza A PCR Negative (Negative); Influenza B PCR Negative (Negative); Resp. Syncytial Virus PCR Negative (Negative); SARS-CoV-2 by PCR (In House) Negative (Negative)
[2021-03-31 16:17] LABS: Bacteria,Urine Many per hpf (None-Few); Bilirubin,Urine Negative (Negative); Blood,Urine Negative (Negative); Clarity,Urine Turbid (Clear); Color,Urine Yellow (Yellow); Glucose,Urine (UA) Normal (Normal); Ketones,Urine Negative (Negative); Leukocyte Esterase,Urine Negative (Negative); Mucus,Urine Few per lpf (None-Few); Nitrite,Urine Positive (Negative); Protein,Urine 30 mg/dL (Neg-Trace); RBC,Urine 0-3 per hpf (0-3); Squamous Epithelial Cell,Urine Few per hpf (None-Few); Urobilinogen,Urine Normal (Normal); WBC,Urine 0-3 per hpf (0-3)
[2021-03-31] MEDS ORDERED: Naloxone 0.4 MG/ML INJ IVP PRN (16:46)
[2021-03-31] MEDS ORDERED: Ondansetron 4 MG/2 ML VIAL IVP PRN (16:46)
[2021-03-31] MEDS ORDERED: MOM Conc 10 ML UD.LIQ PO PRN (16:46)
[2021-03-31] MEDS ORDERED: Dextrose Gel 15 GM/37.5 ML TUBE PO PRN ×2 (18:41)
[2021-03-31] MEDS ORDERED: *HR* Dextrose 50 % in Water (Syg) 50 ML SYRINGE IVP PRN (18:41)
[2021-03-31] MEDS ORDERED: D5% in Water 1,000 ML IVC PRN (18:41)
[2021-03-31 18:56] LABS: Magnesium 1.8 mg/dL (1.6-2.6)
[2021-03-31 18:58] LABS: Troponin I 0.03 ng/mL (< 0.04)
[2021-03-31] MEDS: Ipratropium/Albuterol Neb 3 ML IH SCH (20:43)
[2021-03-31] MEDS ORDERED: Melatonin 3 MG TABLET PO PRN (21:00)
[2021-03-31] MEDS: Insulin LISPRO 300 UNITS/3 ML VIAL SUBQ SCH (21:05)
[2021-03-31] MEDS: Ringers Solution, Lactated 1,000 ML IVC SCH (21:05)
[2021-04-01] MEDS: Vancomycin Oral Soln 125 MG/2.5 ML UDC PO SCH ×5 (00:01→21:52)
[2021-04-01] MEDS: Cefepime HCl 2,000 MG in 0.9 % Sodium Chloride Mini Bag 100 ML IVP SCH ×2 (01:11→10:18)
[2021-04-01 03:16] LABS: Red Cell Distribution Width 16.8 % (11.5-14.5)
[2021-04-01 03:18] LABS: Hematocrit 22.7 % (35.3-44.9); Hemoglobin 7.8 g/dL (11.5-15.4); Immature Platelets 9.9 % (1.1-6.1); Mean Corpuscular HGB Conc 34.4 g/dL (31.6-35.5); Mean Corpuscular Hemoglobin 28.5 pg (28.0-33.3); Mean Corpuscular Volume 82.8 fL (83.0-100.0); Mean Platelet Volume 13.9 fL (9.4-12.4); Red Blood Count 2.74 M/mcL (3.82-4.97); White Blood Count 1.7 K/mcL (4.3-11.1)
[2021-04-01 03:31] LABS: Potassium 3.5 mEq/L (3.5-5.1)
[2021-04-01] MEDS: Ipratropium/Albuterol Neb 3 ML IH SCH ×2 (04:41→08:14)
[2021-04-01] MEDS: Insulin LISPRO 300 UNITS/3 ML VIAL SUBQ SCH ×4 (08:42→21:00)
[2021-04-01] MEDS: Lactobacillus 1 EACH CAP.SPRINK PO SCH (08:48)
[2021-04-01] MEDS ORDERED: Azithromycin 250 MG TABLET PO SCH (09:00)
[2021-04-01] MEDS: cefTRIAXone 1,000 MG in 0.9 % Sodium Chloride Mini Bag 100 ML IVP SCH (09:32)
[2021-04-01] MEDS: Ringers Solution, Lactated 1,000 ML IVC SCH ×2 (10:25→21:51)
[2021-04-01 12:31] LABS: Sodium, Urine 21.8 mEq/L
[2021-04-01] MEDS ORDERED: Ipratropium/Albuterol Neb 3 ML IH PRN (14:48)
[2021-04-01] MEDS: Aquaphor/Maalox 50 GM BOTTLE TP SCH ×2 (17:51→21:53)
[2021-04-01 18:33] LABS: Adenovirus Not Detected (Not Detect); Bordetella Pertussis Not Detected (Not Detect); Chlamydophila pneumoniae Not Detected (Not Detect); Coronavirus 229E Not Detected (Not Detect); Coronavirus HKU1 Not Detected (Not Detect); Coronavirus NL63 Not Detected (Not Detect); Coronavirus OC43 Not Detected (Not Detect); Human Metapneumovirus Not Detected (Not Detect); Human Rhinovirus/Enterovirus Not Detected (Not Detect); Influenza A Subtype 2009 H1 Not Detected (Not Detect); Influenza B Not Detected (Not Detect); Mycoplasma pneumoniae Not Detected (Not Detect); Parainfluenza Virus 1 Not Detected (Not Detect); Parainfluenza Virus 2 Not Detected (Not Detect); Parainfluenza Virus 3 Not Detected (Not Detect); Parainfluenza Virus 4 Not Detected (Not Detect); Respiratory Syncytial Virus Not Detected (Not Detect); SARS-CoV-2 Not Detected (Not Detect)
[2021-04-01] MEDS ORDERED: Saline Nasal Spray 44 ML BOTTLE NS PRN (19:20)
[2021-04-01] MEDS ORDERED: GuaiFENesin Liq 200 MG/10 ML UDC PO PRN (19:20)
[2021-04-01] MEDS: allopurinoL 100 MG TABLET PO SCH (21:52)
[2021-04-02 06:13] LABS: Basophils # 0.1 K/mcL (0.0-0.2); Basophils % 1.1 %; Eosinophils # 0.1 K/mcL (0.0-0.6); Eosinophils % 1.3 %; Hematocrit 24.9 % (35.3-44.9); Hemoglobin 8.4 g/dL (11.5-15.4); Immature Granulocytes % 2.6 % (0-4); Immature Platelets 11.2 % (1.1-6.1); Lymphocytes # 1.9 K/mcL (0.6-4.6); Lymphocytes % 40.3 %; Mean Corpuscular HGB Conc 33.7 g/dL (31.6-35.5); Mean Corpuscular Hemoglobin 27.9 pg (28.0-33.3); Mean Corpuscular Volume 82.7 fL (83.0-100.0); Mean Platelet Volume 12.7 fL (9.4-12.4); Monocytes # 0.6 K/mcL (0.0-1.3); Monocytes % 13.3 %; Nucleated Red Blood Cells 0.9 /100 WBC (0); Platelet Count 61 K/mcL (140-400); Red Blood Count 3.01 M/mcL (3.82-4.97); Red Cell Distribution Width 16.7 % (11.5-14.5); Segmented Neutrophils % 41.4 %; White Blood Count 4.7 K/mcL (4.3-11.1)
[2021-04-02 06:33] LABS: BUN/Creatinine Ratio 15 (6-26); Blood Urea Nitrogen 13 mg/dL (8-23); Calcium 8.4 mg/dL (8.6-10.3); Carbon Dioxide 26 mEq/L (23-29); Chloride 105 mEq/L (98-107); Glucose 111 mg/dL (70-105); Osmolality,Calculated 289 (280-300); Sodium 139 mEq/L (136-145); eGFR For African Americans > 60 (> 60); eGFR For Non-African Americans > 60 (> 60)
[2021-04-02] MEDS: Insulin LISPRO 300 UNITS/3 ML VIAL SUBQ SCH ×4 (08:08→20:43)
[2021-04-02] MEDS: cefTRIAXone 1,000 MG in 0.9 % Sodium Chloride Mini Bag 100 ML IVP SCH (08:47)
[2021-04-02] MEDS: Vancomycin Oral Soln 125 MG/2.5 ML UDC PO SCH ×4 (08:50→20:43)
[2021-04-02] MEDS: Lactobacillus 1 EACH CAP.SPRINK PO SCH (08:50)
[2021-04-02] MEDS: allopurinoL 100 MG TABLET PO SCH ×2 (08:57→20:43)
[2021-04-02] MEDS: Aquaphor/Maalox 50 GM BOTTLE TP SCH (08:59)
[2021-04-02] MEDS: Ringers Solution, Lactated 1,000 ML IVC SCH (09:32)
[2021-04-03 05:17] LABS: Hemoglobin 9.2 g/dL (11.5-15.4); Nucleated Red Blood Cells 0.6 /100 WBC (0); Red Cell Distribution Width 16.6 % (11.5-14.5)
[2021-04-03 05:19] LABS: Hematocrit 27.5 % (35.3-44.9); Mean Corpuscular HGB Conc 33.5 g/dL (31.6-35.5); Mean Corpuscular Hemoglobin 27.6 pg (28.0-33.3); Mean Corpuscular Volume 82.6 fL (83.0-100.0); Mean Platelet Volume 12.9 fL (9.4-12.4); Red Blood Count 3.33 M/mcL (3.82-4.97); White Blood Count 9.1 K/mcL (4.3-11.1)
[2021-04-03 05:21] LABS: Platelet Count 81 K/mcL (140-400)
[2021-04-03 05:42] LABS: Lymphocytes # 3.1 K/mcL (0.6-4.6); Monocytes # 0.4 K/mcL (0.0-1.3); Neutrophils # 5.5 K/mcL (1.6-8.9); Platelet Estimate Decreased (Normal); Toxic Granulation Present (Not Present)
[2021-04-03 05:55] LABS: BUN/Creatinine Ratio 10 (6-26); Blood Urea Nitrogen 8 mg/dL (8-23); Calcium 8.4 mg/dL (8.6-10.3); Carbon Dioxide 26 mEq/L (23-29); Chloride 106 mEq/L (98-107); Glucose 158 mg/dL (70-105); Osmolality,Calculated 290 (280-300); Potassium 3.3 mEq/L (3.5-5.1); Sodium 139 mEq/L (136-145); eGFR For African Americans > 60 (> 60); eGFR For Non-African Americans > 60 (> 60)
[2021-04-03] MEDS ORDERED: Amoxicillin/Clavulanate 500 MG TABLET PO SCH (08:00)
[2021-04-03] MEDS: Insulin LISPRO 300 UNITS/3 ML VIAL SUBQ SCH ×4 (08:45→22:26)
[2021-04-03] MEDS: Lactobacillus 1 EACH CAP.SPRINK PO SCH (09:06)
[2021-04-03] MEDS: Vancomycin Oral Soln 125 MG/2.5 ML UDC PO SCH ×4 (09:06→22:06)
[2021-04-03] MEDS: allopurinoL 100 MG TABLET PO SCH ×2 (09:06→22:05)
[2021-04-03] MEDS ORDERED: 0.9 % Sodium Chloride 1,000 ML ONE (11:02)
[2021-04-03] MEDS: Aquaphor/Maalox 50 GM BOTTLE TP SCH ×2 (11:25→22:54)
[2021-04-03] MEDS: Amoxicillin/Clavulanate 400 MG/5 ML UDC PO SCH (22:54)
[2021-04-04 03:30] LABS: Hematocrit 27.8 % (35.3-44.9); Hemoglobin 9.3 g/dL (11.5-15.4); Mean Corpuscular HGB Conc 33.5 g/dL (31.6-35.5); Mean Corpuscular Hemoglobin 27.7 pg (28.0-33.3); Mean Corpuscular Volume 82.7 fL (83.0-100.0); Mean Platelet Volume 12.2 fL (9.4-12.4); Nucleated Red Blood Cells 0.5 /100 WBC (0); Platelet Count 104 K/mcL (140-400); Red Blood Count 3.36 M/mcL (3.82-4.97); Red Cell Distribution Width 16.7 % (11.5-14.5); White Blood Count 9.9 K/mcL (4.3-11.1)
[2021-04-04 04:16] LABS: Monocytes # 0.6 K/mcL (0.0-1.3); Neutrophils # 5.4 K/mcL (1.6-8.9); Platelet Estimate Slight Decrease (Normal); Reactive Lymphocytes Present (Not Present)
[2021-04-04 08:09] VITALS: O2SAT 93
[2021-04-04] MEDS: Insulin LISPRO 300 UNITS/3 ML VIAL SUBQ SCH ×2 (08:21→12:20)
[2021-04-04] MEDS: Vancomycin Oral Soln 125 MG/2.5 ML UDC PO SCH ×2 (08:32→12:20)
[2021-04-04] MEDS: allopurinoL 100 MG TABLET PO SCH (08:32)
[2021-04-04] MEDS: Lactobacillus 1 EACH CAP.SPRINK PO SCH (08:32)
[2021-04-04] MEDS: Aquaphor/Maalox 50 GM BOTTLE TP SCH (08:33)
[2021-04-04] MEDS: Amoxicillin/Clavulanate 400 MG/5 ML UDC PO SCH (08:37)
[2021-04-04] MEDS ORDERED: carvediloL 6.25 MG TABLET PO SCH (09:00)
[2021-04-04 09:36] LABS: BUN/Creatinine Ratio 7 (6-26); Blood Urea Nitrogen 5 mg/dL (8-23); Calcium 8.5 mg/dL (8.6-10.3); Carbon Dioxide 27 mEq/L (23-29); Chloride 103 mEq/L (98-107); Glucose 148 mg/dL (70-105); Osmolality,Calculated 288 (280-300); Potassium 3.1 mEq/L (3.5-5.1); Sodium 139 mEq/L (136-145); eGFR For African Americans > 60 (> 60); eGFR For Non-African Americans > 60 (> 60)
[2021-04-04 11:51] VITALS: BP 166/79; PULSE 90; TEMP 98.5
[2021-04-04] MEDS ORDERED: Potassium Effervescent 25 MEQ TABLET.EFF PO ONE (13:41)
== END 2021-04-04 16:44 | disposition home health service (06) | DRG 871 ==
LOC: EMEROOARM 09:46 → 3ANU 09:46 → SUATTDRO 04-01 17:23
PROVIDERS: ADMIT Internal Medicine; ATTEND Internal Medicine

== ENCOUNTER 2021-04-14 15:48 | Inpatient (IN) ==
[2021-04-14 16:48] LABS: Basophils # 0.1 K/mcL (0.0-0.2); Basophils % 0.5 %; Hematocrit 26.6 % (35.3-44.9); Hemoglobin 8.9 g/dL (11.5-15.4); Immature Granulocytes % 2.1 % (0-4); Lymphocytes # 3.6 K/mcL (0.6-4.6); Lymphocytes % 26.1 %; Mean Corpuscular HGB Conc 33.5 g/dL (31.6-35.5); Mean Corpuscular Hemoglobin 27.6 pg (28.0-33.3); Mean Corpuscular Volume 82.4 fL (83.0-100.0); Mean Platelet Volume 10.5 fL (9.4-12.4); Monocytes # 1.5 K/mcL (0.0-1.3); Monocytes % 10.9 %; Neutrophils # 8.2 K/mcL (1.6-8.9); Platelet Count 350 K/mcL (140-400); Red Blood Count 3.23 M/mcL (3.82-4.97); Red Cell Distribution Width 16.8 % (11.5-14.5); Segmented Neutrophils % 60.4 %; White Blood Count 13.6 K/mcL (4.3-11.1)
[2021-04-14 17:13] LABS: Albumin 2.8 g/dL (3.5-5.7); Albumin/Globulin Ratio 1.1 (1.1-2.2); Bilirubin,Direct 0.2 mg/dL (0.0-0.2); Bilirubin,Indirect 0.7 mg/dL (0.0-1.0); Bilirubin,Total 0.9 mg/dL (0.3-1.0); Calcium 8.8 mg/dL (8.6-10.3); Globulin 2.5 g/dL (2.4-3.5); Potassium 3.4 mEq/L (3.5-5.1); Total Protein 5.3 g/dL (6.4-8.9); Troponin I 0.03 ng/mL (< 0.04)
[2021-04-14] MEDS ORDERED: 0.9 % Sodium Chloride 1,000 ML IV ONE (17:18)
[2021-04-14 18:11] LABS: Bacteria,Urine Few per hpf (None-Few); Bilirubin,Urine Negative (Negative); Blood,Urine Negative (Negative); Clarity,Urine Turbid (Clear); Color,Urine Yellow (Yellow); Glucose,Urine (UA) Normal (Normal); Hyaline Casts,Urine Many per lpf (None Seen); Ketones,Urine Negative (Negative); Leukocyte Esterase,Urine Negative (Negative); Mucus,Urine Few per lpf (None-Few); Nitrite,Urine Negative (Negative); PH,Urine 5.5 pH Units (5.0-8.0); Protein,Urine 50 mg/dL (Neg-Trace); RBC,Urine 0-3 per hpf (0-3); Specific Gravity,Urine 1.022 (1.010-1.025); Squamous Epithelial Cell,Urine Many per hpf (None-Few); Urobilinogen,Urine Normal (Normal)
[2021-04-14 18:39] LABS: Influenza A PCR Negative (Negative); Influenza B PCR Negative (Negative); Resp. Syncytial Virus PCR Negative (Negative)
[2021-04-14 19:45] LABS: SARS-CoV-2 by PCR (In House) Negative (Negative)
[2021-04-14] MEDS ORDERED: Vancomycin Oral Soln 125 MG/2.5 ML UDC PO ONE (20:07)
[2021-04-14] MEDS ORDERED: Melatonin 3 MG TABLET PO PRN (20:19)
[2021-04-14] MEDS ORDERED: Ondansetron ODT 4 MG TAB.RAPDIS SL PRN (20:19)
[2021-04-14] MEDS ORDERED: Naloxone 0.4 MG/ML INJ IVP PRN (20:19)
[2021-04-14] MEDS ORDERED: Dextrose Gel 15 GM/37.5 ML TUBE PO PRN ×2 (21:03)
[2021-04-14] MEDS ORDERED: *HR* Dextrose 50 % in Water (Syg) 50 ML SYRINGE IVP PRN (21:03)
[2021-04-14] MEDS ORDERED: D5% in Water 1,000 ML IVC PRN (21:03)
[2021-04-14] MEDS: Insulin LISPRO 300 UNITS/3 ML VIAL SUBQ SCH (23:15)
[2021-04-15] MEDS: 0.9 % Sodium Chloride 1,000 ML IVC SCH ×2 (00:25→10:03)
[2021-04-15 05:54] LABS: Basophils # 0.1 K/mcL (0.0-0.2); Basophils % 0.6 %; Eosinophils % 0.1 %; Hematocrit 27.5 % (35.3-44.9); Hemoglobin 9.3 g/dL (11.5-15.4); Immature Granulocytes % 1.8 % (0-4); Lymphocytes # 3.1 K/mcL (0.6-4.6); Lymphocytes % 21.9 %; Mean Corpuscular HGB Conc 33.8 g/dL (31.6-35.5); Mean Corpuscular Hemoglobin 28.3 pg (28.0-33.3); Mean Corpuscular Volume 83.6 fL (83.0-100.0); Mean Platelet Volume 10.8 fL (9.4-12.4); Monocytes # 1.4 K/mcL (0.0-1.3); Monocytes % 10.2 %; Neutrophils # 9.3 K/mcL (1.6-8.9); Nucleated Red Blood Cells 0.5 /100 WBC (0); Platelet Count 364 K/mcL (140-400); Red Blood Count 3.29 M/mcL (3.82-4.97); Segmented Neutrophils % 65.4 %; White Blood Count 14.2 K/mcL (4.3-11.1)
[2021-04-15 06:10] LABS: Magnesium 1.5 mg/dL (1.6-2.6); Phosphorous 3.8 mg/dL (2.7-4.5); Potassium 3.3 mEq/L (3.5-5.1)
[2021-04-15] MEDS: allopurinoL 100 MG TABLET PO SCH ×2 (09:32→20:03)
[2021-04-15] MEDS: Cholecalciferol (D-3) 1,000 UNIT (25MCG) TABLET PO SCH (09:32)
[2021-04-15] MEDS: amLODIPine 5 MG TABLET PO SCH (09:33)
[2021-04-15] MEDS: Famotidine 20 MG TABLET PO SCH (09:33)
[2021-04-15] MEDS: Vancomycin Oral Soln 125 MG/2.5 ML UDC PO SCH ×4 (09:35→20:03)
[2021-04-15] MEDS: Cyanocobalamin (B-12) 1,000 MCG TABLET PO SCH (09:55)
[2021-04-15] MEDS: Insulin LISPRO 300 UNITS/3 ML VIAL SUBQ SCH ×4 (10:03→20:04)
[2021-04-15] MEDS ORDERED: Acetaminophen 325 MG TABLET PO PRN (12:53)
[2021-04-15] MEDS ORDERED: 0.9 % Sodium Chloride 1,000 ML IVC SCH (14:45)
[2021-04-15 19:02] LABS: Sodium, Urine 52.3 mEq/L
[2021-04-15] MEDS: carvediloL 6.25 MG TABLET PO SCH (20:03)
[2021-04-16 06:52] LABS: Uric Acid 6.3 mg/dL (2.3-7.6)
[2021-04-16] MEDS: Insulin LISPRO 300 UNITS/3 ML VIAL SUBQ SCH ×4 (07:36→21:13)
[2021-04-16] MEDS: Vancomycin Oral Soln 125 MG/2.5 ML UDC PO SCH ×4 (08:26→21:22)
[2021-04-16] MEDS: allopurinoL 100 MG TABLET PO SCH ×2 (08:27→21:23)
[2021-04-16] MEDS: amLODIPine 5 MG TABLET PO SCH (08:27)
[2021-04-16] MEDS: Cholecalciferol (D-3) 1,000 UNIT (25MCG) TABLET PO SCH (08:27)
[2021-04-16] MEDS: Famotidine 20 MG TABLET PO SCH (08:28)
[2021-04-16] MEDS: Lactobacillus 1 EACH CAP.SPRINK PO SCH (08:28)
[2021-04-16] MEDS: carvediloL 6.25 MG TABLET PO SCH ×2 (08:28→21:23)
[2021-04-16 10:29] LABS: Hepatitis B Surface Antigen Nonreactive (Nonreactive)
[2021-04-16 10:57] LABS: Hepatitis C Virus Antibody Nonreactive (Nonreactive)
[2021-04-16 10:58] LABS: Hepatitis B Core IgM Nonreactive (Nonreactive)
[2021-04-16 10:59] LABS: Hepatitis A Antibody IgM Nonreactive (Nonreactive)
[2021-04-16 11:19] LABS: Hematocrit 26.3 % (35.3-44.9); Hemoglobin 8.7 g/dL (11.5-15.4); Mean Corpuscular HGB Conc 33.1 g/dL (31.6-35.5); Mean Corpuscular Hemoglobin 27.4 pg (28.0-33.3); Mean Platelet Volume 10.1 fL (9.4-12.4); Platelet Count 315 K/mcL (140-400); Red Blood Count 3.17 M/mcL (3.82-4.97); Red Cell Distribution Width 16.8 % (11.5-14.5); White Blood Count 11.6 K/mcL (4.3-11.1)
[2021-04-16 11:37] LABS: BUN/Creatinine Ratio 9 (6-26); Blood Urea Nitrogen 10 mg/dL (8-23); Calcium 8.4 mg/dL (8.6-10.3); Carbon Dioxide 26 mEq/L (23-29); Chloride 108 mEq/L (98-107); Glucose 113 mg/dL (70-105); Magnesium 1.7 mg/dL (1.6-2.6); Osmolality,Calculated 290 (280-300); Phosphorous 3.9 mg/dL (2.7-4.5); Potassium 3.6 mEq/L (3.5-5.1); Sodium 140 mEq/L (136-145); eGFR For African Americans > 60 (> 60); eGFR For Non-African Americans 50 (> 60)
[2021-04-16] MEDS: Cyprohepatdine 4 MG TABLET PO SCH (21:22)
[2021-04-17] MEDS: Insulin LISPRO 300 UNITS/3 ML VIAL SUBQ SCH (07:44)
[2021-04-17] MEDS: carvediloL 6.25 MG TABLET PO SCH (08:43)
[2021-04-17] MEDS: Lactobacillus 1 EACH CAP.SPRINK PO SCH (08:43)
[2021-04-17] MEDS: Cyprohepatdine 4 MG TABLET PO SCH (08:43)
[2021-04-17] MEDS: Cholecalciferol (D-3) 1,000 UNIT (25MCG) TABLET PO SCH (08:44)
[2021-04-17] MEDS: allopurinoL 100 MG TABLET PO SCH (08:44)
[2021-04-17] MEDS: Famotidine 20 MG TABLET PO SCH (08:44)
[2021-04-17] MEDS: amLODIPine 5 MG TABLET PO SCH (08:44)
[2021-04-17] MEDS: Vancomycin Oral Soln 125 MG/2.5 ML UDC PO SCH (08:45)
[2021-04-17] MEDS: Cyanocobalamin (B-12) 1,000 MCG TABLET PO SCH (08:52)
[2021-04-17] MEDS ORDERED: Loratadine 10 MG TABLET PO SCH (09:00)
[2021-04-17] MEDS ORDERED: Magnesium Oxide 400 MG TABLET PO SCH (09:00)
[2021-04-17 11:42] VITALS: BP 130/64; PULSE 80; TEMP 97.8; O2SAT 97
== END 2021-04-17 15:15 | disposition home health service (06) | DRG 683 ==
LOC: 3NENU 15:48 → EMEROOARM 15:48 → SUATTDRO 20:33 → 3NENU 23:09
PROVIDERS: ADMIT Family Medicine; ATTEND Internal Medicine